=== PATIENT | female | born 1975 | race American Indian/Alaskan Native ===

== ENCOUNTER 2021-07-30 14:21 | Inpatient (IN) ==
[2021-07-30] MEDS ORDERED: IOPAMIDOL 100 ML BOTTLE IV ONE (14:22)
[2021-07-30] MEDS ORDERED: ACETAMINOPHEN 1,000 MG/100 ML BAG IV ONE ×3 (14:34→20:20)
[2021-07-30] MEDS ORDERED: 0.9 % SODIUM CHLORIDE 1,000 ML IV ONE ×2 (14:34→18:02)
[2021-07-30 14:59] LABS: POC Blood Urea Nitrogen 11 mg/dL (6-20); POC CO2 22 mmol/L (22-30); POC Chloride 98 mEq/L (96-108); POC Creatinine 0.7 mg/dL (0.6-1.2); POC Glucose, Random 218 mg/dL (70-105); POC Hematocrit 36 % (36-48); POC Potassium 3.7 mEql/L (3.3-5.1); POC Sodium 137 mEq/L (133-145)
--- NOTE | 2021-07-30 14:59 | Emergency Department Note ---
HPI General Chief complaint: Cold/Flu Symptoms Stated complaint: cold/flu Time Seen by Provider: 07/30/21 14:32 Source: patient Mode of arrival: wheelchair Limitations: no limitations History of Present Illness HPI Narrative: Narrative: Patient presents emergency department for evaluation of generalized body aches, fever, nausea vomiting started this morning. Symptoms are associated with chills. Patient's had some diffuse abdominal pain. No other complaints. Related Data Home Medications Medication Instructions Recorded Confirmed acetaminophen 325 mg tablet 650 mg PO .Q4-6H PRN tab 06/21/17 07/28/21 alcohol swabs (Alcohol Wipes) pad TOPICAL 06/21/17 07/28/21 atenolol 50 mg tablet 100 mg PO QDAY tab 06/21/17 07/28/21 blood sugar diagnostic (FreeStyle #20 each 06/21/17 07/28/21 Lite Strips) clobetasol 0.05 % scalp solution 1 applic TOPICAL .1-3xWK PRN ml 06/21/17 07/28/21 cyanocobalamin (vitamin B-12) 1,000 mcg PO QDAY 06/21/17 07/28/21 1,000 mcg capsule lancets [FreeStyle Lancets] MISCELLANE 06/21/17 07/28/21 lisinopril 10 mg tablet 10 mg PO QDAY 06/21/17 07/28/21 metformin 750 mg tablet,extended 750 mg PO QDAY 06/21/17 07/28/21 release 24 hr multivitamin (Daily Multiple) 1 tab PO QDAY 06/21/17 07/28/21 omeprazole 20 mg capsule,delayed 20 mg PO BID 06/21/17 07/28/21 release Freestyle Lite Blood Glucose .ROUTE 06/23/17 07/28/21 Machine Previous Rx's Medication Instructions Recorded clobetasol 0.05 % topical cream 1 applic TOPICAL BID #45 g 02/28/19 ondansetron HCl 4 mg tablet 4 mg PO Q6H PRN #10 tab 11/30/20 (Zofran) secukinumab 150 mg/mL subcutaneous See Rx Instructions .ROUTE 07/30/21 pen injector (Cosentyx Pen 300 .COMPLEX #12 ml mg/2 Pens () Allergies Allergy/AdvReac Type Severity Reaction Status Date / Time No Known Drug Allergies Allergy Verified 07/30/21 14:24 Review of Systems ROS ROS Narrative: Narrative: As above, all other system reviewed and negative PFSH Narrative Patient History Narrative: Narrative: Reviewed Medical/Surgical/Family History All Active Problems (Updated 07/30/21 @ 17:56 by Faisal Orellana MD) Type 2 diabetes mellitus (Chronic) Simple chronic anemia (Chronic) Chronic depression (Chronic) Psoriasis (Chronic) Knee pain, chronic (Chronic) Asthma, chronic (Chronic) Morbid obesity (Acute) Chronic allergic rhinitis (Chronic) Gastroesophageal reflux disease (Chronic) Hypertension (Chronic) Osteoarthritis (Acute) Psoriatic arthritis (Chronic) Plaque psoriasis (Chronic) Allergic rhinitis (Chronic) Obesity (Chronic) Asthma (Chronic) Anemia (Chronic) Knee pain (Chronic) Seborrhea (Chronic) Depression (Chronic) Hypersomnia (Chronic) Sleep apnea (Chronic) Upper respiratory infection (Chronic) Knee pain, bilateral (Acute) Sore throat (Chronic) Viral upper respiratory tract infection (Chronic) Psoriasis with arthropathy (Chronic) Encounter for long-term (current) use of high-risk medication (Chronic) Nausea (Acute) Necrotizing fasciitis (Acute) Sepsis (Acute) Medical History (Updated 07/30/21 @ 17:56 by Faisal Orellana MD) Allergic rhinitis Anemia Asthma Asthma, chronic Chronic allergic rhinitis Chronic depression Depression Encounter for long-term (current) use of high-risk medication Gastroesophageal reflux disease Hypersomnia Hypertension Knee pain Knee pain, bilateral Knee pain, chronic Morbid obesity Obesity Osteoarthritis Plaque psoriasis Psoriasis Psoriasis with arthropathy Psoriatic arthritis Possible Seborrhea Scalp Simple chronic anemia Sleep apnea Sore throat Type 2 diabetes mellitus Upper respiratory infection Viral upper respiratory tract infection Surgical History No pertinent past surgical history Family History Grandfather FHx: diabetes mellitus Maternal Unknown FHx: heart disease FHx: hypertension Family/Other , of colon cancer diagnosed at age 60 Colon cancer Maternal Uncle Social History Smoking Status: Never smoker Alcohol Intake Frequency: does not drink Substance Use: does not use Exam Narrative Narrative: Narrative: Blood pressure 115/67, pulse 121, respirations 20, temperature 102.7, satting 94% room air. General Limitations: no limitations General appearance: Present alert Head Head: Present atraumatic, normocephalic and normal inspection Eye Eye: Present normal appearance, PERRL and EOMI ENT ENT: Present normal exam Neck Neck: Present normal inspection and full ROM Respiratory Respiratory: Absent respiratory distress Adbominal Abdominal: Present soft, tenderness (Diffuse) and other (There is some erythema to the skin overlying the pannus in the right lower quadrant with associated tenderness without crepitus.); Absent distention, guarding or rebound Extremities Extremities: Present normal inspection and full ROM Neurological Neurological: Present alert, oriented X3 and CN II-XII intact; Absent motor sensory deficit Psychiatric Psychiatric: Present normal affect and normal mood Skin Skin: Present warm (WNL) and dry Course Vital Signs Vital signs: Vital Signs Temperature 102.7 F H 07/30/21 14:22 Pulse Rate 121 H 07/30/21 14:22 Respiratory Rate 20 07/30/21 14:22 Blood Pressure 115/67 07/30/21 14:22 Pulse Oximetry (%) 94 07/30/21 14:22 Temperature 101.1 F H 07/30/21 15:47 Pulse Rate 100 H 07/30/21 17:16 Respiratory Rate 20 07/30/21 15:08 Blood Pressure 99/68 07/30/21 17:16 Pulse Oximetry (%) 95 07/30/21 17:16 MDM MDM Narrative Medical decision making narrative: Narrative: Patient is hydrated with IV fluids. Initially placed on Rocephin. I spoke with on-call hospitalist who recommended the addition of vancomycin and Zosyn which were ordered and if positive for necrotizing fasciitis on CT scan recommended clindamycin as well. CT scans consistent with necrotizing fasciitis per radiology. I spoke with surgeon, Dr. Funez who came promptly to the emergency department and evaluated the patient. Patient was also hydrated with IV fluids. Surgery plans to take the patient to the operating room. Greater than 30 minutes critical care time was spent via direct patient contact, reviewing results of work-up, speaking with [employer] distribution consultant etc. Lab Data Result diagrams: 07/30/21 14:49 07/30/21 14:48 Labs: Lab Results 07/30/21 07/30/21 Range/Units 14:48 14:49 WBC 20.6 H (4.5-11.0) K/mcL RBC 4.27 (3.59-5.38) M/mcL Hgb 11.5 (11.2-15.7) g/dL Hct 35.8 (34.1-44.9) % POC Hct 36 (36-48) % MCV 83.8 (80.0-100.0) fL MCH 26.9 (26.0-34.0) pg MCHC 32.1 (31.0-36.0) g/dL RDW 13.2 (11.5-14.5) % Plt Count 422 (140-440) K/mcL MPV 9.7 (7.4-10.4) fL Neut % (Auto) 85.7 H (38.0-78.0) % Lymph % (Auto) 6.8 L (15.5-49.0) % [place] % (Auto) 7.2 (1.0-12.0) % Eos % (Auto) 0 (0.0-7.0) % Baso % (Auto) 0.3 (0.0-2.0) % Lymph # (Auto) 1.40 L (1.50-4.80) K/mcL [place] # (Auto) 1.48 H (0.10-0.90) K/mcL Eos # (Auto) 0.01 (0.00-0.70) K/mcL Baso # (Auto) 0.07 (0.00-0.30) K/mcL Absolute Neutrophils 17.68 H (1.80-8.00) K/mcL POC Sodium 137 (133-145) mEq/L Sodium 134 (133-145) mmol/L POC Potassium 3.7 (3.3-5.1) mEql/L Potassium 3.7 (3.3-5.1) mmol/L POC Chloride 98 (96-108) mEq/L Chloride 99 (96-108) mmol/L Carbon Dioxide 22 (22-30) mmol/L POC Total CO2 22 (22-30) mmol/L Anion Gap 13.0 (8.0-16.0) POC BUN 11 (6-20) mg/dL BUN 9 (6-20) mg/dL Creatinine 0.7 (0.6-1.1) mg/dL POC Creatinine 0.7 (0.6-1.2) mg/dL GFR Calculation 105 Glucose 216 H (70-105) mg/dL POC Glucose 218 H (70-105) mg/dL Calcium 8.6 (8.6-10.4) mg/dL POC WB Ioniz Calcium 1.10 L (1.16-1.32) mmEq/L Total Bilirubin 0.9 (0.1-1.0) mg/dL AST 19 (<32) U/L ALT 18 (<40) U/L Alkaline Phosphatase 93 (39-117) U/L Total Protein 7.8 (5.9-8.4) gm/dL Albumin 3.6 (3.2-5.2) gm/dL Globulin 4.2 H (2.2-3.7) gm/dL Albumin/Globulin Ratio 0.9 L (1.0-2.3) ED POC Tests ED POC Tests: HUI - Influenza A Positive HUI - Influenza B Negative HUI - SARS Antigen Negative HCG POC Results Negative Discharge Plan Patient/Caregiver Discharge Instructions Pt seen by CHIEF OPERATOR/PA only: No Clinical Impression: Necrotizing fasciitis, Sepsis Patient Disposition: Xfer As Inpt ([facility]) Follow up with: Tano Groves ARNP [Primary Care Provider] - Prescriptions: No Action clobetasol 0.05 % cream 1 applic TOPICAL BID Qty: 45 2RF Cosentyx Pen (2 Pens) 150 mg/mL pen injector See Rx Instructions .ROUTE .COMPLEX Qty: 12 0RF Rx Instructions: take 300mg at 0, 1, 2, 3, 4, weeks; then take 300mg every 4 weeks; lancets MISCELLANE 0RF (DME) blood sugar diagnostic [FreeStyle Lite Strips] strip See Dose Instructions .ROUTE .MEDSUPPLY Qty: 20 0RF Rx Instructions: As directed cyanocobalamin (vitamin B-12) 1,000 mcg capsule 1,000 mcg PO QDAY 0RF omeprazole 20 mg capsule,delayed release(DR/EC) 20 mg PO BID 0RF multivitamin [Daily Multiple] tablet 1 tab PO QDAY 0RF metformin 750 mg tablet extended release 24 hr 750 mg PO QDAY 0RF lisinopril 10 mg tablet 10 mg PO QDAY 0RF clobetasol 0.05 % solution 1 applic TOPICAL .1-3xWK PRN (Reason: Itching) 0RF atenolol 50 mg tablet 100 mg PO QDAY 0RF acetaminophen 325 mg tablet 650 mg PO .Q4-6H PRN (Reason: Pain) 0RF alcohol swabs [Alcohol Wipes] pads, medicated TOPICAL 0RF Freestyle Lite Blood Glucose Machine .Route 0RF Label Comments: .Route Rx Instructions: .Route ondansetron HCl [Zofran] 4 mg tablet 4 mg PO Q6H PRN (Reason: nausea and vomiting) Qty: 10 0RF
[2021-07-30 15:43] LABS: Basophils # (Auto) 0.07 K/mcL (0.00-0.30); Basophils % (Auto) 0.3 % (0.0-2.0); Eosinophils # (Auto) 0.01 K/mcL (0.00-0.70); Eosinophils % (Auto) 0 % (0.0-7.0); Hematocrit 35.8 % (34.1-44.9); Hemoglobin 11.5 g/dL (11.2-15.7); Lymphocytes % (Auto) 6.8 % (15.5-49.0); Mean Cell Volume 83.8 fL (80.0-100.0); Mean Corpuscular HGB Conc 32.1 g/dL (31.0-36.0); Mean Platelet Volume 9.7 fL (7.4-10.4); Monocytes # (Auto) 1.48 K/mcL (0.10-0.90); Monocytes % (Auto) 7.2 % (1.0-12.0); Neutrophils % (Auto) 85.7 % (38.0-78.0); Platelet Count 422 K/mcL (140-440); RBC 4.27 M/mcL (3.59-5.38); Red Cell Distribution Width 13.2 % (11.5-14.5); WBC 20.6 K/mcL (4.5-11.0)
[2021-07-30 15:45] LABS: ALT/SGPT 18 U/L (<40); AST/SGOT 19 U/L (<32); Albumin 3.6 gm/dL (3.2-5.2); Albumin/Globulin Ratio 0.9 (1.0-2.3); Alkaline Phosphatase 93 U/L (39-117); Bilirubin,Total 0.9 mg/dL (0.1-1.0); Blood Urea Nitrogen 9 mg/dL (6-20); Calcium 8.6 mg/dL (8.6-10.4); Carbon Dioxide 22 mmol/L (22-30); Chloride 99 mmol/L (96-108); Globulin 4.2 gm/dL (2.2-3.7); Glomerular Filtration Rate 105; Glucose 216 mg/dL (70-105)
--- NOTE | 2021-07-30 15:47 | XRay Report ---
INDICATION: fever TECHNIQUE: AP portable chest x-ray COMPARISON: Previous chest x-ray dated 08/26/2017 FINDINGS: Lungs:No pulmonary parenchymal consolidation. There may be subtle bibasilar interstitial infiltrate. Correlation with patient's covid test recommended. Heart, vascular:No significant cardiomegaly. Pulmonary vascularity is normal. No pulmonary edema or pulmonary congestion Mediastinum, jade:No mediastinal widening. No hilar mass Pleura:No pleural fluid. No pleural-based mass or calcification Skeletal:Negative. IMPRESSION: 1. Possible mild subtle interstitial infiltrates at both lung bases. Covid pneumonia is possible 2. No other abnormality Interpreted and Authenticated by: Grayson Ngo 07/30/21
[2021-07-30] MEDS ORDERED: cefTRIAXone 2 GM in DEXTROSE 5% IN WATER 50 ML IV ONE (15:52)
--- NOTE | 2021-07-30 16:07 | Cat Scan Report ---
INDICATION: abd pain, fever COMPARISON: Chest x-ray dated 07/30/2021 TECHNIQUE: Axial images were obtained through the abdomen and pelvis. Sagittally and coronally reformatted images. 80 mL Isovue 370 injected intravenously. Oral contrast material was not administered FINDINGS: Lung bases:Negative. No pulmonary parenchymal nodule. No pleural fluid or pericardial fluid Liver:Mildly low density liver consistent with hepatic steatosis. No focal mass. Liver contour is smooth. There is no ascites Gallbladder, bilary:No calcified gallstones. No gallbladder wall thickening. No dilated intra or extrahepatic bile ducts. Spleen:No splenomegaly. Normal enhancement of splenic and portal veins. Pancreas:No pancreatic mass. No peripancreatic abnormality Adrenal glands:Negative Kidneys,ureters,bladder:No solid renal mass. No hydronephrosis. No obstructing or nonobstructing calculi. No hydroureter. No ureteral calculus. No bladder stone. No detectable bladder mass. Gastrointestinal:No detectable colonic mass. There is no diverticulitis. Negative small bowel. No mechanical small bowel obstruction. No bowel wall thickening. No focal abnormality. Negative stomach and duodenum. No focal abnormality. Appendix: The appendix is negative Vascular:Negative abdominal aorta. Superior mesenteric artery and celiac trunk are normal. Normal opacification of the inferior mesenteric artery Lymphatic:No retroperitoneal or mesenteric adenopathy Mesentery, peritoneum: No free intraperitoneal fluid. No mesenteric or retroperitoneal mass. No intra-abdominal abscess. Reproductive:Uterus is anteflexed. There is an intrauterine contraceptive device in the lower uterine segment. No adnexal mass Musculoskeletal:Degenerative disc disease at L5-S1. No lumbar compression fracture. Sacrum and pelvis are negative. Hips are negative. No abdominal wall or inguinal hernia There is gas in the superficial soft tissues of the right lower quadrant. This appears to be associated with this patient's pannus. The entire pannus as well as subcutaneous soft tissues is not included on this examination. Skin breakdown and subcutaneous inflammation and cellulitis are suspected. Direct visualization is necessary as only a portion of this abnormality is included on this examination. IMPRESSION: 1. Negative appendix 2. Probable hepatic steatosis 3. Intrauterine contraceptive device in the lower uterine segment 4. Gas in the soft tissues of the right lower quadrant may be trapped within the pannus. There may be associated skin breakdown with cellulitis. The entire pannus and lateral aspects of the abdominal wall are not included on this examination. Direct visualization is necessary. The exam was performed using radiation dose optimization techniques including, but not limited to, automated exposure control, adjustment of the mA and/or kV according to patient size and use of iterative reconstruction technique. Interpreted and Authenticated by: Grayson Ngo 07/30/21
[2021-07-30] MEDS ORDERED: PIPERACILLIN SODIUM/TAZOBACTAM 3.375 GM in DEXTROSE 5% IN WATER 50 ML IV ONE (16:38)
[2021-07-30] MEDS ORDERED: VANCOMYCIN PER PHARMACY IV ONE (16:38)
[2021-07-30] MEDS ORDERED: CLINDAMYCIN 900 MG in DEXTROSE 5% IN WATER 50 ML IV ONE (17:01)
--- NOTE | 2021-07-30 17:05 | Cat Scan Report ---
INDICATION: cellulitis TECHNIQUE: Limited CT scan of the right lower quadrant was performed. The patient was centered in the gantry so that the entire right side including the subcutaneous soft tissues was scanned. The pannus was taped and hold. COMPARISON: Previous CT scan dated 07/30/2021 FINDINGS: There is skin thickening in the right lower quadrant with intradermal or subdermal gas. There is gas within the subcutaneous fat consistent with necrotizing fasciitis. There is no significant contained abscess. There is infiltration of the surrounding fat consistent with cellulitis. No intra-abdominal abnormality IMPRESSION: 1. Skin thickening in the right lower quadrant with gas in the subcutaneous fat. Appearance is consistent with necrotizing fasciitis 2. No intraperitoneal abnormality. No defined abscess cavity Interpreted and Authenticated by: Grayson Ngo 07/30/21
[2021-07-30] MEDS ORDERED: VANCOMYCIN 2,000 MG in 0.9 % SODIUM CHLORIDE 500 ML IV ONE (17:15)
--- NOTE | 2021-07-30 18:24 | General Surgery Consult Note ---
HPI Data of Consult Patient: new to practice Consult date: 07/30/21 Primary Care Provider: GIGI Hernandez Consult Narrative Chief complaint: Pain, fever Reason for consult: Concern for Necrotizing Soft Tissue Infection History of present illness: Olivia is seen in consultation tonight in the ER after presenting with fever, weakness and pain. On exam she was found to have an area of fluctuant erythema in the soft tissue of her RLQ pannus. A CT was performed which demonstrated findings consistent with soft tissue/SQ air raising concerns regarding a possible Necrotizing Soft Tissue Infection. She suffers with Morbid Obesity and Diabetes but has not had past soft tissue infections. Of note, she was found to be positive for Influenza A as well. Her pressures have been low in the ER but have been responsive to fluids. She is not currently on pressors but is on a chronic B Dawit perhaps explaining her lack of Tachycardia. She does not inject her insulin in the area of concern and is quite clear that this could not be a possible source of air or infection in this area. She denies any known cardiac issues, is not on a CPAP or BIPAP and denies home O2 use. She is not on any oral anticoagulants. cc:: CC: Review of Systems All systems: reviewed and no additional remarkable complaints except as stated PFSH PFSH All Active Problems (Updated 07/30/21 @ 18:19 by Tico Funez MD) Necrotizing soft tissue infection (Acute) Type 2 diabetes mellitus (Chronic) Simple chronic anemia (Chronic) Chronic depression (Chronic) Psoriasis (Chronic) Knee pain, chronic (Chronic) Asthma, chronic (Chronic) Morbid obesity (Acute) Chronic allergic rhinitis (Chronic) Gastroesophageal reflux disease (Chronic) Hypertension (Chronic) Osteoarthritis (Acute) Psoriatic arthritis (Chronic) Plaque psoriasis (Chronic) Allergic rhinitis (Chronic) Obesity (Chronic) Asthma (Chronic) Anemia (Chronic) Knee pain (Chronic) Seborrhea (Chronic) Depression (Chronic) Hypersomnia (Chronic) Sleep apnea (Chronic) Upper respiratory infection (Chronic) Knee pain, bilateral (Acute) Sore throat (Chronic) Viral upper respiratory tract infection (Chronic) Psoriasis with arthropathy (Chronic) Encounter for long-term (current) use of high-risk medication (Chronic) Nausea (Acute) Necrotizing fasciitis (Acute) Sepsis (Acute) Medical History (Updated 07/30/21 @ 18:19 by Tico Funez MD) Allergic rhinitis Anemia Asthma Asthma, chronic Chronic allergic rhinitis Chronic depression Depression Encounter for long-term (current) use of high-risk medication Gastroesophageal reflux disease Hypersomnia Hypertension Knee pain Knee pain, bilateral Knee pain, chronic Morbid obesity Obesity Osteoarthritis Plaque psoriasis Psoriasis Psoriasis with arthropathy Psoriatic arthritis Possible Seborrhea Scalp Simple chronic anemia Sleep apnea Sore throat Type 2 diabetes mellitus Upper respiratory infection Viral upper respiratory tract infection Surgical History No pertinent past surgical history Family History Grandfather FHx: diabetes mellitus Maternal Unknown FHx: heart disease FHx: hypertension Family/Other , of colon cancer diagnosed at age 60 Colon cancer Maternal Uncle Social History marital status: occupational 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 alcohol intake frequency: does not drink substance use type: does not use MEDS/ALLERGIES Home Medications and Allergies Home Medications Medication Instructions Recorded Confirmed Type acetaminophen 325 mg tablet 650 mg PO .Q4-6H PRN tab 06/21/17 07/28/21 History alcohol swabs (Alcohol Wipes) pad TOPICAL 06/21/17 07/28/21 History atenolol 50 mg tablet 100 mg PO QDAY tab 06/21/17 07/28/21 History blood sugar diagnostic (FreeStyle #20 each 06/21/17 07/28/21 History Lite Strips) clobetasol 0.05 % scalp solution 1 applic TOPICAL .1-3xWK PRN ml 06/21/17 History cyanocobalamin (vitamin B-12) 1,000 mcg PO QDAY 06/21/17 07/28/21 History 1,000 mcg capsule lancets [FreeStyle Lancets] MISCELLANE 06/21/17 07/28/21 History lisinopril 10 mg tablet 10 mg PO QDAY 06/21/17 07/28/21 History metformin 750 mg tablet,extended 750 mg PO QDAY 06/21/17 07/28/21 History release 24 hr multivitamin (Daily Multiple) 1 tab PO QDAY 06/21/17 07/28/21 History omeprazole 20 mg capsule,delayed 20 mg PO BID 06/21/17 07/28/21 History release Freestyle Lite Blood Glucose .ROUTE 06/23/17 07/28/21 History Machine clobetasol 0.05 % topical cream 1 applic TOPICAL BID #45 g 02/28/19 07/28/21 Rx ondansetron HCl 4 mg tablet 4 mg PO Q6H PRN #10 tab 11/30/20 07/28/21 Rx (Zofran) secukinumab 150 mg/mL subcutaneous See Rx Instructions .ROUTE 07/30/21 Rx pen injector (Cosentyx Pen 300 .COMPLEX #12 ml mg/2 Pens () Allergies Allergy/AdvReac Type Severity Reaction Status Date / Time No Known Drug Allergies Allergy Verified 07/30/21 14:24 Physical Examination Vital Signs Vital signs: Temp Pulse Resp BP Pulse Ox 101.1 F H 89 20 102/61 98 07/30/21 15:47 07/30/21 18:01 07/30/21 15:08 07/30/21 18:01 07/30/21 18:01 General physical appearance General physical exam: well developed, well nourished and no distress Eyes Eye exam: other (normal appearance ) Head Head exam IM: Present atraumatic and normocephalic Neck Neck exam: no masses, trachea midline and no lymphadenopathy Cardiovascular Cardiovascular exam IM: Present normal rate and rhythm and RRR Respiratory Respiratory exam: normal expansion and normal respiratory effort Abdomen Abdomen: Present soft (directed exam demonstrates a roughly 5 by 10 cm area of raised erythema and ? bullae formation with some fluctuance and crepitus, the area is tender ) Integumentary Integumentary: Present other (see above ) Results Labs Result diagrams: 07/30/21 14:49 07/30/21 14:48 Labs: Abnormal lab results 07/30/21 07/30/21 Range/Units 14:48 14:49 WBC 20.6 H (4.5-11.0) K/mcL Neut % (Auto) 85.7 H (38.0-78.0) % Lymph % (Auto) 6.8 L (15.5-49.0) % Lymph # (Auto) 1.40 L (1.50-4.80) K/mcL [place] # (Auto) 1.48 H (0.10-0.90) K/mcL Absolute Neutrophils 17.68 H (1.80-8.00) K/mcL Glucose 216 H (70-105) mg/dL POC Glucose 218 H (70-105) mg/dL POC WB Ioniz Calcium 1.10 L (1.16-1.32) mmEq/L Globulin 4.2 H (2.2-3.7) gm/dL Albumin/Globulin Ratio 0.9 L (1.0-2.3) Diabetes panel 07/30/21 Range/Units 14:48 Sodium 134 (133-145) mmol/L Potassium 3.7 (3.3-5.1) mmol/L Chloride 99 (96-108) mmol/L Carbon Dioxide 22 (22-30) mmol/L BUN 9 (6-20) mg/dL Creatinine 0.7 (0.6-1.1) mg/dL Glucose 216 H (70-105) mg/dL Calcium 8.6 (8.6-10.4) mg/dL AST 19 (<32) U/L ALT 18 (<40) U/L Alkaline Phosphatase 93 (39-117) U/L Total Protein 7.8 (5.9-8.4) gm/dL Albumin 3.6 (3.2-5.2) gm/dL Calcium panel 07/30/21 Range/Units 14:48 Calcium 8.6 (8.6-10.4) mg/dL Albumin 3.6 (3.2-5.2) gm/dL Pituitary panel 07/30/21 Range/Units 14:48 Sodium 134 (133-145) mmol/L Potassium 3.7 (3.3-5.1) mmol/L Chloride 99 (96-108) mmol/L Carbon Dioxide 22 (22-30) mmol/L BUN 9 (6-20) mg/dL Creatinine 0.7 (0.6-1.1) mg/dL Glucose 216 H (70-105) mg/dL Calcium 8.6 (8.6-10.4) mg/dL Adrenal panel 07/30/21 Range/Units 14:48 Sodium 134 (133-145) mmol/L Potassium 3.7 (3.3-5.1) mmol/L Chloride 99 (96-108) mmol/L Carbon Dioxide 22 (22-30) mmol/L BUN 9 (6-20) mg/dL Creatinine 0.7 (0.6-1.1) mg/dL Glucose 216 H (70-105) mg/dL Calcium 8.6 (8.6-10.4) mg/dL Total Bilirubin 0.9 (0.1-1.0) mg/dL AST 19 (<32) U/L ALT 18 (<40) U/L Alkaline Phosphatase 93 (39-117) U/L Total Protein 7.8 (5.9-8.4) gm/dL Albumin 3.6 (3.2-5.2) gm/dL All other labs normal. A/P Assessment and plan (1) Necrotizing soft tissue infection: Status: Acute Narrative A/P Narrative: Presumed Necrotizing Soft Tissue Infection of the RLQ Abdominal Wall Pannus Emergent Debridement is Recommended Issues are discussed at length with the patient including a full discussion of Risks, Benefits, Potential Complications and Alternative Treatment Options as well including but no limited to an open wound, possible need for additional debridement, possible discovery that she does not have a substantial soft tissue infection and does not improve as a result of this intervention, pain, and possible cardiopulmonary issues or hemodynamic demise during or even after surgery She understands and wishes to proceed. Time Spent With Patient Time: Total time spent is greater than 50% in coordination of care (as documented) at patient's floor/unit and/or counseling patient:
[2021-07-30] MEDS ORDERED: SUGAMMADEX SODIUM 200 MG/2 ML VIAL IV ONE (19:14)
[2021-07-30] MEDS ORDERED: DEXAMETHASONE 10 MG/ML VIAL ONE (19:14)
[2021-07-30] MEDS ORDERED: fentaNYL 100 MCG/2 ML VIAL IV ONE (19:14)
[2021-07-30] MEDS ORDERED: MIDAZOLAM 2 MG/2 ML VIAL ONE (19:14)
[2021-07-30] MEDS ORDERED: GLYCOPYRROLATE 0.2 MG/ML VIAL IV ONE (19:14)
[2021-07-30] MEDS ORDERED: MAGNESIUM SULFATE 2 GM/50 ML BAG IV ONE (19:14)
[2021-07-30] MEDS ORDERED: ONDANSETRON 4 MG/2 ML VIAL ONE (19:14)
[2021-07-30] MEDS ORDERED: LIDOCAINE HCL/PF 100 MG/5 ML SYRINGE IV ONE (19:14)
[2021-07-30] MEDS ORDERED: ROCURONIUM 10 MG/ML ML IV ONE (19:14)
[2021-07-30] MEDS ORDERED: KETAMINE 50 MG/ML Syringe (ANEST) IV ONE (19:14)
[2021-07-30] MEDS ORDERED: PROPOFOL 200 MG/20 ML VIAL IV ONE (19:14)
[2021-07-30] MEDS ORDERED: BENZOCAINE/MENTHOL 1 LOZENGE PO PRN (19:44)
[2021-07-30] MEDS ORDERED: KETOROLAC 30 MG/ML VIAL IV PRN (19:44)
[2021-07-30] MEDS ORDERED: ONDANSETRON 4 MG/2 ML VIAL IV PRN (19:44)
[2021-07-30] MEDS ORDERED: MEPERIDINE 25 MG/ML VIAL IV PRN (19:44)
[2021-07-30] MEDS ORDERED: IPRATROPIUM/ALBUTEROL 3 ML AMPUL.NEB NEB PRN (19:44)
[2021-07-30] MEDS ORDERED: fentaNYL 100 MCG/2 ML VIAL IV PRN (19:44)
[2021-07-30] MEDS ORDERED: LACTATED RINGERS 1,000 ML IV SCH (19:45)
--- NOTE | 2021-07-31 00:21 | Brief Operative Note ---
Brief Operative Note Date of procedure: 07/30/21 Pre-op diagnosis: Necrotizing Soft Tissue Infection Post-op diagnosis: same Procedure: Exploration and Debridement Grafts/Implants: No Anesthesia: GETA Findings: foul smelling necrotizing soft tissue infection Complications: none Surgeon: Tico Funez Specimens Removed/Pathology: other ([place] and culture) Condition: stable Disposition: PACU
--- NOTE | 2021-07-31 00:41 | Emergency Department Note ---
HPI General Chief complaint: Cold/Flu Symptoms Stated complaint: cold/flu Time Seen by Provider: 07/30/21 14:32 Source: patient Mode of arrival: wheelchair Limitations: no limitations History of Present Illness HPI Narrative: Narrative: Related Data Home Medications Medication Instructions Recorded Confirmed acetaminophen 325 mg tablet 650 mg PO .Q4-6H PRN tab 06/21/17 07/28/21 alcohol swabs (Alcohol Wipes) pad TOPICAL 06/21/17 07/28/21 atenolol 50 mg tablet 100 mg PO QDAY tab 06/21/17 07/28/21 blood sugar diagnostic (FreeStyle #20 each 06/21/17 07/28/21 Lite Strips) clobetasol 0.05 % scalp solution 1 applic TOPICAL .1-3xWK PRN ml 06/21/17 07/28/21 cyanocobalamin (vitamin B-12) 1,000 mcg PO QDAY 06/21/17 07/28/21 1,000 mcg capsule lancets [FreeStyle Lancets] MISCELLANE 06/21/17 07/28/21 lisinopril 10 mg tablet 10 mg PO QDAY 06/21/17 07/28/21 metformin 750 mg tablet,extended 750 mg PO QDAY 06/21/17 07/28/21 release 24 hr multivitamin (Daily Multiple) 1 tab PO QDAY 06/21/17 07/28/21 omeprazole 20 mg capsule,delayed 20 mg PO BID 06/21/17 07/28/21 release Freestyle Lite Blood Glucose .ROUTE 06/23/17 07/28/21 Machine Previous Rx's Medication Instructions Recorded clobetasol 0.05 % topical cream 1 applic TOPICAL BID #45 g 02/28/19 ondansetron HCl 4 mg tablet 4 mg PO Q6H PRN #10 tab 11/30/20 (Zofran) secukinumab 150 mg/mL subcutaneous See Rx Instructions .ROUTE 07/30/21 pen injector (Cosentyx Pen 300 .COMPLEX #12 ml mg/2 Pens () Allergies Allergy/AdvReac Type Severity Reaction Status Date / Time No Known Drug Allergies Allergy Verified 07/30/21 14:24 Review of Systems ROS ROS Narrative: Narrative: PFSH Narrative Patient History Narrative: Narrative: Medical/Surgical/Family History All Active Problems (Updated 07/30/21 @ 18:19 by Tico Funez MD) Necrotizing soft tissue infection (Acute) Type 2 diabetes mellitus (Chronic) Simple chronic anemia (Chronic) Chronic depression (Chronic) Psoriasis (Chronic) Knee pain, chronic (Chronic) Asthma, chronic (Chronic) Morbid obesity (Acute) Chronic allergic rhinitis (Chronic) Gastroesophageal reflux disease (Chronic) Hypertension (Chronic) Osteoarthritis (Acute) Psoriatic arthritis (Chronic) Plaque psoriasis (Chronic) Allergic rhinitis (Chronic) Obesity (Chronic) Asthma (Chronic) Anemia (Chronic) Knee pain (Chronic) Seborrhea (Chronic) Depression (Chronic) Hypersomnia (Chronic) Sleep apnea (Chronic) Upper respiratory infection (Chronic) Knee pain, bilateral (Acute) Sore throat (Chronic) Viral upper respiratory tract infection (Chronic) Psoriasis with arthropathy (Chronic) Encounter for long-term (current) use of high-risk medication (Chronic) Nausea (Acute) Necrotizing fasciitis (Acute) Sepsis (Acute) Medical History (Updated 07/30/21 @ 18:19 by Tico Funez MD) Allergic rhinitis Anemia Asthma Asthma, chronic Chronic allergic rhinitis Chronic depression Depression Encounter for long-term (current) use of high-risk medication Gastroesophageal reflux disease Hypersomnia Hypertension Knee pain Knee pain, bilateral Knee pain, chronic Morbid obesity Obesity Osteoarthritis Plaque psoriasis Psoriasis Psoriasis with arthropathy Psoriatic arthritis Possible Seborrhea Scalp Simple chronic anemia Sleep apnea Sore throat Type 2 diabetes mellitus Upper respiratory infection Viral upper respiratory tract infection Surgical History No pertinent past surgical history Family History Grandfather FHx: diabetes mellitus Maternal Unknown FHx: heart disease FHx: hypertension Family/Other , of colon cancer diagnosed at age 60 Colon cancer Maternal Uncle Social History Smoking Status: Never smoker Alcohol Intake Frequency: does not drink Substance Use: does not use Exam Narrative Narrative: Narrative: General Limitations: no limitations Course Vital Signs Vital signs: Vital Signs Temperature 102.7 F H 07/30/21 14:22 Pulse Rate 121 H 07/30/21 14:22 Respiratory Rate 20 07/30/21 14:22 Blood Pressure 115/67 07/30/21 14:22 Pulse Oximetry (%) 94 07/30/21 14:22 Temperature 101.1 F H 07/30/21 20:24 Pulse Rate 71 07/31/21 06:16 Respiratory Rate 29 H 07/30/21 20:26 Blood Pressure 110/67 07/31/21 06:16 Pulse Oximetry (%) 95 07/31/21 06:16 MDM MDM Narrative Medical decision making narrative: Narrative: Patient is a 45-year-old female who presented with chief complaint of necrotizing fasciitis. Patient was signed out to me by Dr. Chávez, and I agree with work-up and plan thus far. Is my understand the patient presented with generalized not feeling well complaints starting today, had a CT scan concerning for possible neck fashion, and repeat CT scan did confirm this. Surgery was consulted emergently, and Dr. Funez was able to see the patient at bedside. At signout the patient was to be taken to the OR, however we do not have any beds for admission here at this time so we are going to attempt transfer to facilitate continued management. In talking with Dr. Funez after postop, it sounded like there was some significant necrotizing fasciitis noted, but it did not penetrate the peritoneum or fascia. Patient has a large wound where tissue was excised, but otherwise tolerated the procedure well. She does not appear to be septic or toxic at this time, and blood pressure has remained stable throughout. I was able to discuss the case with the [facility] surgeon, Dr. Reese, and he agreed with the current plan of taking the patient to the OR. He stated the pain on how the patient responded and how she was doing would determine whether or not she required ICU bed placement versus floor bed placement. Unfortunately [facility] only has ICU bed available, so they will be unable to accept the patient at this time. Thus far we have been unable to find a bed for the patient, and in discussion with Dr. Funez he did feel that if a bed was able to open up here at our hospital he would feel comfortable with the patient staying here considering how she currently is appearing. If we are unable to locate another bed before 1 opens up here at our hospital we will work on admission to our hospital for further work-up and management. I did personally seen evaluate the patient here after her surgery and she is resting in bed comfortably, talking normally and appropriately. She does not appear to be in acute discomfort or distress. She states overall she is feeling better outside of some soreness from her throat after the intubation for the surgery. Lab Data Result diagrams: 07/30/21 14:49 07/30/21 14:48 Labs: Lab Results 07/30/21 07/30/21 Range/Units 14:48 14:49 WBC 20.6 H (4.5-11.0) K/mcL RBC 4.27 (3.59-5.38) M/mcL Hgb 11.5 (11.2-15.7) g/dL Hct 35.8 (34.1-44.9) % POC Hct 36 (36-48) % MCV 83.8 (80.0-100.0) fL MCH 26.9 (26.0-34.0) pg MCHC 32.1 (31.0-36.0) g/dL RDW 13.2 (11.5-14.5) % Plt Count 422 (140-440) K/mcL MPV 9.7 (7.4-10.4) fL Neut % (Auto) 85.7 H (38.0-78.0) % Lymph % (Auto) 6.8 L (15.5-49.0) % [place] % (Auto) 7.2 (1.0-12.0) % Eos % (Auto) 0 (0.0-7.0) % Baso % (Auto) 0.3 (0.0-2.0) % Lymph # (Auto) 1.40 L (1.50-4.80) K/mcL [place] # (Auto) 1.48 H (0.10-0.90) K/mcL Eos # (Auto) 0.01 (0.00-0.70) K/mcL Baso # (Auto) 0.07 (0.00-0.30) K/mcL Absolute Neutrophils 17.68 H (1.80-8.00) K/mcL POC Sodium 137 (133-145) mEq/L Sodium 134 (133-145) mmol/L POC Potassium 3.7 (3.3-5.1) mEql/L Potassium 3.7 (3.3-5.1) mmol/L POC Chloride 98 (96-108) mEq/L Chloride 99 (96-108) mmol/L Carbon Dioxide 22 (22-30) mmol/L POC Total CO2 22 (22-30) mmol/L Anion Gap 13.0 (8.0-16.0) POC BUN 11 (6-20) mg/dL BUN 9 (6-20) mg/dL Creatinine 0.7 (0.6-1.1) mg/dL POC Creatinine 0.7 (0.6-1.2) mg/dL GFR Calculation 105 Glucose 216 H (70-105) mg/dL POC Glucose 218 H (70-105) mg/dL Calcium 8.6 (8.6-10.4) mg/dL POC WB Ioniz Calcium 1.10 L (1.16-1.32) mmEq/L Total Bilirubin 0.9 (0.1-1.0) mg/dL AST 19 (<32) U/L ALT 18 (<40) U/L Alkaline Phosphatase 93 (39-117) U/L Total Protein 7.8 (5.9-8.4) gm/dL Albumin 3.6 (3.2-5.2) gm/dL Globulin 4.2 H (2.2-3.7) gm/dL Albumin/Globulin Ratio 0.9 L (1.0-2.3) ED POC Tests ED POC Tests: HUI - Influenza A Positive HUI - Influenza B Negative HUI - SARS Antigen Negative HCG POC Results Negative Discharge Plan Patient/Caregiver Discharge Instructions Pt seen by WAITER AND CASHIER/PA only: No Clinical Impression: Necrotizing fasciitis, Sepsis Patient Disposition: Xfer As Inpt ([facility])
[2021-07-31] MEDS: PIPERACILLIN SODIUM/TAZOBACTAM 4.5 GM in DEXTROSE 5% IN WATER 50 ML IV SCH ×4 (03:00→22:27)
[2021-07-31] MEDS: CLINDAMYCIN 900 MG in DEXTROSE 5% IN WATER 50 ML IV SCH ×4 (03:34→22:26)
[2021-07-31] MEDS ORDERED: VANCOMYCIN PER PHARMACY IV ONE (06:00)
[2021-07-31] MEDS ORDERED: VANCOMYCIN 1,500 MG in 0.9 % SODIUM CHLORIDE 500 ML IV ONE (07:15)
[2021-07-31] MEDS ORDERED: OSELTAMIVIR PHOSPHATE 75 MG CAPSULE PO ONE (07:38)
--- NOTE | 2021-07-31 07:44 | Emergency Department Note ---
HPI General Chief complaint: Cold/Flu Symptoms Stated complaint: cold/flu Time Seen by Provider: 07/30/21 14:32 Source: patient Mode of arrival: wheelchair Limitations: no limitations History of Present Illness HPI Narrative: Narrative: I received this patient in sign out from Dr Burr. For full details, please see his and Dr Smith notes, along w/ surgical consultation and op note. In brief, this patient presented w/ cough/cold symptoms, and was indeed found to be influenza A positive, but more pressingly, was found to have RLQ abdominal wall necrotizing fasciitis on CT. Dr Funez with surgery took the patient to the OR for debridement, and from our end, she was started on clindamycin, vancomycin, a nd zosyn. She has tolerated all interventions well, and is back here in the ED pending disposition. Dr Funez felt that local admission would be reasonable, but at this point there are no beds available. It does seem that we will be getting beds later on this AM, thus patient will remain here for now. Currently she reports minimal abdominal wall pain postop. She notes that her sore throat postintubation has improved, and she denies fevers, chills, chest pain, shortness of breath. She has no complaints at this time. Related Data Home Medications Medication Instructions Recorded Confirmed acetaminophen 325 mg tablet 650 mg PO Q4-6HP PRN tab 06/21/17 07/31/21 atenolol 50 mg tablet 100 mg PO QDAY tab 06/21/17 07/31/21 blood sugar diagnostic (FreeStyle #20 each 06/21/17 07/28/21 Lite Strips) clobetasol 0.05 % scalp solution 1 applic TOPICAL .1-3xWK PRN ml 06/21/17 07/31/21 cyanocobalamin (vitamin B-12) 1,000 mcg PO QDAY 06/21/17 07/31/21 1,000 mcg capsule lisinopril 10 mg tablet 40 mg PO QDAY 06/21/17 07/31/21 multivitamin (Daily Multiple) 1 tab PO QDAY 06/21/17 07/31/21 omeprazole 20 mg capsule,delayed 20 mg PO BID 06/21/17 07/31/21 release Magnesium (oxide/AA chelate) 420 mg PO DAILY 07/31/21 07/31/21 cetirizine 10 mg tablet 10 mg PO HS 07/31/21 07/31/21 dulaglutide 0.75 mg/0.5 mL See Rx Instructions .ROUTE .COMPLEX 07/31/21 07/31/21 subcutaneous pen injector (Trulicity) hydrochlorothiazide 25 mg tablet 25 mg PO QAM 07/31/21 07/31/21 metformin 850 mg tablet 850 mg PO BID 07/31/21 07/31/21 topiramate 25 mg tablet 25 mg PO DAILY 07/31/21 07/31/21 Previous Rx's Medication Instructions Recorded clobetasol 0.05 % topical cream 1 applic TOPICAL BID #45 g 02/28/19 ondansetron HCl 4 mg tablet 4 mg PO Q6H PRN #10 tab 11/30/20 (Zofran) secukinumab 150 mg/mL subcutaneous See Rx Instructions .ROUTE 07/30/21 pen injector (Cosentyx Pen 300 .COMPLEX #12 ml mg/2 Pens () Allergies Allergy/AdvReac Type Severity Reaction Status Date / Time No Known Drug Allergies Allergy Verified 07/30/21 14:24 Review of Systems ROS ROS Narrative: Narrative: All systems ED: reviewed and negative except as stated. PFSH Narrative Patient History Narrative: Narrative: Medical/Surgical/Family History All Active Problems (Updated 07/31/21 @ 07:43 by Steve Stephens MD) Influenza A (Acute) Necrotizing soft tissue infection (Acute) Type 2 diabetes mellitus (Chronic) Simple chronic anemia (Chronic) Chronic depression (Chronic) Psoriasis (Chronic) Knee pain, chronic (Chronic) Asthma, chronic (Chronic) Morbid obesity (Acute) Chronic allergic rhinitis (Chronic) Gastroesophageal reflux disease (Chronic) Hypertension (Chronic) Osteoarthritis (Acute) Psoriatic arthritis (Chronic) Plaque psoriasis (Chronic) Allergic rhinitis (Chronic) Obesity (Chronic) Asthma (Chronic) Anemia (Chronic) Knee pain (Chronic) Seborrhea (Chronic) Depression (Chronic) Hypersomnia (Chronic) Sleep apnea (Chronic) Upper respiratory infection (Chronic) Knee pain, bilateral (Acute) Sore throat (Chronic) Viral upper respiratory tract infection (Chronic) Psoriasis with arthropathy (Chronic) Encounter for long-term (current) use of high-risk medication (Chronic) Nausea (Acute) Necrotizing fasciitis (Acute) Sepsis (Acute) Medical History (Updated 12/09/21 @ 07:43 by Steve Stephens MD) Allergic rhinitis Anemia Asthma Asthma, chronic Chronic allergic rhinitis Chronic depression Depression Encounter for long-term (current) use of high-risk medication Gastroesophageal reflux disease Hypersomnia Hypertension Knee pain Knee pain, bilateral Knee pain, chronic Morbid obesity Obesity Osteoarthritis Plaque psoriasis Psoriasis Psoriasis with arthropathy Psoriatic arthritis Possible Seborrhea Scalp Simple chronic anemia Sleep apnea Sore throat Type 2 diabetes mellitus Upper respiratory infection Viral upper respiratory tract infection Surgical History No pertinent past surgical history Family History Grandfather FHx: diabetes mellitus Maternal Unknown FHx: heart disease FHx: hypertension Family/Other , of colon cancer diagnosed at age 60 Colon cancer Maternal Uncle Social History Smoking Status: Never smoker Alcohol Intake Frequency: does not drink Substance Use: does not use Exam Narrative Narrative: Narrative: General Limitations: no limitations General appearance: Present alert and in no apparent distress Head Head: Present atraumatic and normocephalic ENT ENT: Present normal oropharynx and mucous membranes moist Chest Chest: Present normal inspection and symmetric chest wall rise Respiratory Respiratory: Present normal lung sounds bilaterally; Absent respiratory distress, rales/crackles, wheezes or stridor Cardiovascular Cardiovascular: Present regular rate, normal rhythm, +S1, +S2 and other (2+ B/L DP pulses); Absent systolic murmur or diastolic murmur Adbominal Abdominal: Present soft, tenderness (mild, over incision), normal bowel sounds and other (RLQ abdominal dressing w/ moderate serosanginous DC present); Absent distention, guarding, rebound or rigidity Extremities Extremities: Absent pedal edema Neurological Neurological: Present alert and oriented X3 Psychiatric Psychiatric: Present normal affect Skin Skin: Present warm (WNL) and dry Course Vital Signs Vital signs: Vital Signs Temperature 102.7 F H 07/30/21 14:22 Pulse Rate 121 H 07/30/21 14:22 Respiratory Rate 20 07/30/21 14:22 Blood Pressure 115/67 07/30/21 14:22 Pulse Oximetry (%) 94 07/30/21 14:22 Temperature 97.1 F 07/31/21 15:26 Pulse Rate 81 07/31/21 14:07 Respiratory Rate 26 H 07/31/21 16:18 Blood Pressure 111/68 07/31/21 15:26 Pulse Oximetry (%) 97 07/31/21 15:26 MDM MDM Narrative Medical decision making narrative: Narrative: Pt remained clinically stable in the ED. I cont'd her abx and ordered tamiflu as well. Once beds were available on the floor, she was accepted for admission by the hospitalist, with Dr Funez continuing to follow. Lab Data Result diagrams: 07/31/21 07:18 07/30/21 14:48 Labs: Lab Results 07/30/21 07/30/21 07/31/21 Range/Units 14:48 14:49 07:18 WBC 20.6 H 15.7 H (4.5-11.0) K/mcL RBC 4.27 3.82 (3.59-5.38) M/mcL Hgb 11.5 10.7 L (11.2-15.7) g/dL Hct 35.8 32.1 L (34.1-44.9) % POC Hct 36 (36-48) % MCV 83.8 84.0 (80.0-100.0) fL MCH 26.9 28.0 (26.0-34.0) pg MCHC 32.1 33.3 (31.0-36.0) g/dL RDW 13.2 13.0 (11.5-14.5) % Plt Count 422 334 (140-440) K/mcL MPV 9.7 9.5 (7.4-10.4) fL Neut % (Auto) 85.7 H 92.9 H (38.0-78.0) % Lymph % (Auto) 6.8 L 4.2 L (15.5-49.0) % [place] % (Auto) 7.2 2.8 (1.0-12.0) % Eos % (Auto) 0 0 (0.0-7.0) % Baso % (Auto) 0.3 0.1 (0.0-2.0) % Lymph # (Auto) 1.40 L 0.66 L (1.50-4.80) K/mcL [place] # (Auto) 1.48 H 0.44 (0.10-0.90) K/mcL Eos # (Auto) 0.01 0 (0.00-0.70) K/mcL Baso # (Auto) 0.07 0.01 (0.00-0.30) K/mcL Absolute Neutrophils 17.68 H 14.59 H (1.80-8.00) K/mcL POC Sodium 137 (133-145) mEq/L Sodium 134 (133-145) mmol/L POC Potassium 3.7 (3.3-5.1) mEql/L Potassium 3.7 (3.3-5.1) mmol/L POC Chloride 98 (96-108) mEq/L Chloride 99 (96-108) mmol/L Carbon Dioxide 22 (22-30) mmol/L POC Total CO2 22 (22-30) mmol/L Anion Gap 13.0 (8.0-16.0) POC BUN 11 (6-20) mg/dL BUN 9 (6-20) mg/dL Creatinine 0.7 (0.6-1.1) mg/dL POC Creatinine 0.7 (0.6-1.2) mg/dL GFR Calculation 105 Glucose 216 H (70-105) mg/dL POC Glucose 218 H (70-105) mg/dL Calcium 8.6 (8.6-10.4) mg/dL POC WB Ioniz Calcium 1.10 L (1.16-1.32) mmEq/L Total Bilirubin 0.9 (0.1-1.0) mg/dL AST 19 (<32) U/L ALT 18 (<40) U/L Alkaline Phosphatase 93 (39-117) U/L Total Protein 7.8 (5.9-8.4) gm/dL Albumin 3.6 (3.2-5.2) gm/dL Globulin 4.2 H (2.2-3.7) gm/dL Albumin/Globulin Ratio 0.9 L (1.0-2.3) 07/31/21 Range/Units 07:18 WBC (4.5-11.0) K/mcL RBC (3.59-5.38) M/mcL Hgb (11.2-15.7) g/dL Hct (34.1-44.9) % POC Hct 30 L (36-48) % MCV (80.0-100.0) fL MCH (26.0-34.0) pg MCHC (31.0-36.0) g/dL RDW (11.5-14.5) % Plt Count (140-440) K/mcL MPV (7.4-10.4) fL Neut % (Auto) (38.0-78.0) % Lymph % (Auto) (15.5-49.0) % [place] % (Auto) (1.0-12.0) % Eos % (Auto) (0.0-7.0) % Baso % (Auto) (0.0-2.0) % Lymph # (Auto) (1.50-4.80) K/mcL [place] # (Auto) (0.10-0.90) K/mcL Eos # (Auto) (0.00-0.70) K/mcL Baso # (Auto) (0.00-0.30) K/mcL Absolute Neutrophils (1.80-8.00) K/mcL POC Sodium 137 (133-145) mEq/L Sodium (133-145) mmol/L POC Potassium 3.6 (3.3-5.1) mEql/L Potassium (3.3-5.1) mmol/L POC Chloride 105 (96-108) mEq/L Chloride (96-108) mmol/L Carbon Dioxide (22-30) mmol/L POC Total CO2 17 L (22-30) mmol/L Anion Gap (8.0-16.0) POC BUN 7 (6-20) mg/dL BUN (6-20) mg/dL Creatinine (0.6-1.1) mg/dL POC Creatinine 0.4 L (0.6-1.2) mg/dL GFR Calculation Glucose (70-105) mg/dL POC Glucose 306 H (70-105) mg/dL Calcium (8.6-10.4) mg/dL POC WB Ioniz Calcium 1.02 L (1.16-1.32) mmEq/L Total Bilirubin (0.1-1.0) mg/dL AST (<32) U/L ALT (<40) U/L Alkaline Phosphatase (39-117) U/L Total Protein (5.9-8.4) gm/dL Albumin (3.2-5.2) gm/dL Globulin (2.2-3.7) gm/dL Albumin/Globulin Ratio (1.0-2.3) ED POC Tests ED POC Tests: HUI - Influenza A Positive HUI - Influenza B Negative HUI - SARS Antigen Negative HCG POC Results Negative Discharge Plan Patient/Caregiver Discharge Instructions Pt seen by CENTRIFUGAL EXTRACTOR OPERATOR/PA only: No Clinical Impression: Necrotizing fasciitis, Sepsis, Influenza A Patient Disposition: Xfer As Inpt ([facility]) Discharge Date/Time: 07/30/21 18:40
[2021-07-31 08:23] LABS: POC Blood Urea Nitrogen 7 mg/dL (6-20); POC CO2 17 mmol/L (22-30); POC Calcium, Ionized 1.02 mmEq/L (1.16-1.32); POC Chloride 105 mEq/L (96-108); POC Creatinine 0.4 mg/dL (0.6-1.2); POC Glucose, Random 306 mg/dL (70-105); POC Hematocrit 30 % (36-48); POC Potassium 3.6 mEql/L (3.3-5.1); POC Sodium 137 mEq/L (133-145)
--- NOTE | 2021-07-31 08:45 | EKG ---
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 Measurements Intervals [place] Rate: 93 P: 55 OR: 163 QRS: 62 QRSD: 91 T: 35 QT: 370 QTc: 461 Interpretive Statements Sinus rhythm Electronically Signed On 07-31-2021 8:45:29 PST by Grayson Fermin M.D. /store/[email or web address]/[id number]
[2021-07-31 09:00] LABS: Basophils # (Auto) 0.01 K/mcL (0.00-0.30); Basophils % (Auto) 0.1 % (0.0-2.0); Eosinophils # (Auto) 0 K/mcL (0.00-0.70); Eosinophils % (Auto) 0 % (0.0-7.0); Hematocrit 32.1 % (34.1-44.9); Hemoglobin 10.7 g/dL (11.2-15.7); Lymphocytes # (Auto) 0.66 K/mcL (1.50-4.80); Lymphocytes % (Auto) 4.2 % (15.5-49.0); Mean Corpuscular HGB Conc 33.3 g/dL (31.0-36.0); Mean Platelet Volume 9.5 fL (7.4-10.4); Monocytes # (Auto) 0.44 K/mcL (0.10-0.90); Monocytes % (Auto) 2.8 % (1.0-12.0); Neutrophils % (Auto) 92.9 % (38.0-78.0); Platelet Count 334 K/mcL (140-440); RBC 3.82 M/mcL (3.59-5.38); WBC 15.7 K/mcL (4.5-11.0)
--- NOTE | 2021-07-31 11:36 | Internal Med History&Physical ---
HPI History of Present Illness Patient information: Note initiated : 07/31/21 at 11:34 am Service Date, if different from initiated Date: [] Patient: Olivia Courtney a 45 y/o F admitted on for cold/flu. Chief Complaint: [] History of present illness: Ms. Courtney is a 45 year old F Patient presents the ED with generalized body aches headache nausea vomiting fever chills and right lower abdominal pain. Work-up revealed a cellulitic appearance of the right lower quadrant abdomen. Imaging revealed appear to be necrotizing fasciitis. She had a WBC of 20 and a fever of 102. Dr. Funez took her for debridement last night. There is no i npatient bed available for her yesterday so she was taken back to the ED after surgery. Today she is afebrile today and her leukocytosis improving. She is also on monoclonal antibody to interleukin for her psoriasis. Review of Systems: Pertinent positives as above. Denies headache/fever/chills/nausea/vomiting/chest pain/cough/dyspnea/diarrhea. Many 10 point review of system reviewed negative PFSH PFSH All Active Problems (Updated 07/31/21 @ 07:43 by Steve Stephens MD) Influenza A (Acute) Necrotizing soft tissue infection (Acute) Type 2 diabetes mellitus (Chronic) Simple chronic anemia (Chronic) Chronic depression (Chronic) Psoriasis (Chronic) Knee pain, chronic (Chronic) Asthma, chronic (Chronic) Morbid obesity (Acute) Chronic allergic rhinitis (Chronic) Gastroesophageal reflux disease (Chronic) Hypertension (Chronic) Osteoarthritis (Acute) Psoriatic arthritis (Chronic) Plaque psoriasis (Chronic) Allergic rhinitis (Chronic) Obesity (Chronic) Asthma (Chronic) Anemia (Chronic) Knee pain (Chronic) Seborrhea (Chronic) Depression (Chronic) Hypersomnia (Chronic) Sleep apnea (Chronic) Upper respiratory infection (Chronic) Knee pain, bilateral (Acute) Sore throat (Chronic) Viral upper respiratory tract infection (Chronic) Psoriasis with arthropathy (Chronic) Encounter for long-term (current) use of high-risk medication (Chronic) Nausea (Acute) Necrotizing fasciitis (Acute) Sepsis (Acute) Medical History (Updated 07/31/21 @ 07:43 by Steve Stephens MD) Allergic rhinitis Anemia Asthma Asthma, chronic Chronic allergic rhinitis Chronic depression Depression Encounter for long-term (current) use of high-risk medication Gastroesophageal reflux disease Hypersomnia Hypertension Knee pain Knee pain, bilateral Knee pain, chronic Morbid obesity Obesity Osteoarthritis Plaque psoriasis Psoriasis Psoriasis with arthropathy Psoriatic arthritis Possible Seborrhea Scalp Simple chronic anemia Sleep apnea Sore throat Type 2 diabetes mellitus Upper respiratory infection Viral upper respiratory tract infection Surgical History No pertinent past surgical history Family History Grandfather FHx: diabetes mellitus Maternal Unknown FHx: heart disease FHx: hypertension Family/Other , of colon cancer diagnosed at age 60 Colon cancer Maternal Uncle Social History marital status: occupational status: employed occupation: [employer] in [place] [employer] alcohol intake frequency: does not drink substance use type: does not use MEDS/ALLERGIES Home Medications and Allergies Home Medications Medication Instructions Recorded Confirmed Type acetaminophen 325 mg tablet 650 mg PO .Q4-6H PRN tab 06/21/17 07/28/21 History alcohol swabs (Alcohol Wipes) pad TOPICAL 06/21/17 07/28/21 History atenolol 50 mg tablet 100 mg PO QDAY tab 06/21/17 07/28/21 History blood sugar diagnostic (FreeStyle #20 each 06/21/17 07/28/21 History Lite Strips) clobetasol 0.05 % scalp solution 1 applic TOPICAL .1-3xWK PRN ml 06/21/17 07/28/21 History cyanocobalamin (vitamin B-12) 1,000 mcg PO QDAY 06/21/17 07/28/21 History 1,000 mcg capsule lancets [FreeStyle Lancets] MISCELLANE 06/21/17 07/28/21 History lisinopril 10 mg tablet 10 mg PO QDAY 06/21/17 07/28/21 History metformin 750 mg tablet,extended 750 mg PO QDAY 06/21/17 07/28/21 History release 24 hr multivitamin (Daily Multiple) 1 tab PO QDAY 06/21/17 07/28/21 History omeprazole 20 mg capsule,delayed 20 mg PO BID 06/21/17 07/28/21 History release Freestyle Lite Blood Glucose .ROUTE 06/23/17 07/28/21 History Machine clobetasol 0.05 % topical cream 1 applic TOPICAL BID #45 g 02/28/19 07/28/21 Rx ondansetron HCl 4 mg tablet 4 mg PO Q6H PRN #10 tab 11/30/20 07/28/21 Rx (Zofran) secukinumab 150 mg/mL subcutaneous See Rx Instructions .ROUTE 07/30/21 Rx pen injector (Cosentyx Pen 300 .COMPLEX #12 ml mg/2 Pens () Allergies Allergy/AdvReac Type Severity Reaction Status Date / Time No Known Drug Allergies Allergy Verified 07/30/21 14:24 EXAM Constitutional Vitals: Temp Pulse Resp BP Pulse Ox 101.1 F H 82 29 H 117/70 96 07/30/21 20:24 07/31/21 10:42 07/30/21 20:26 07/31/21 07:01 07/31/21 10:42 Exam: General: Alert, Awake, No acute Distress, morbid obesity Eyes/N/T: EOMI, PERRL, Head/Neck: neck supple, normocephalic atraumatic CV: RRR, No murmurs, normal s1/s2 Pulm: Clear b/l, no wheezing/rhonchi/rales Abd: soft, +BS x4, abdominal dressing in place over surgical site Ext: no clubbing/cyanosis/edema Neuro: Alert, no focal deficits, moves all extremities, CN 2-12 grossly intact, symmetrical strength b/l upper/lower, sensations intact b/l upper/lower Skin: warm/dry DATA Data Completed and Pending Labs: Labs from last 24 hours 07/31/21 07/31/21 07/30/21 07:18 07:18 14:49 WBC 15.7 H 20.6 H RBC 3.82 4.27 Hgb 10.7 L 11.5 Hct 32.1 L 35.8 POC Hct 30 L MCV 84.0 83.8 MCH 28.0 26.9 MCHC 33.3 32.1 RDW 13.0 13.2 Plt Count 334 422 MPV 9.5 9.7 Neut % (Auto) 92.9 H 85.7 H Lymph % (Auto) 4.2 L 6.8 L Tripp % (Auto) 2.8 7.2 Eos % (Auto) 0 0 Baso % (Auto) 0.1 0.3 Lymph # (Auto) 0.66 L 1.40 L Tripp # (Auto) 0.44 1.48 H Eos # (Auto) 0 0.01 Baso # (Auto) 0.01 0.07 Absolute Neutrophils 14.59 H 17.68 H POC Sodium 137 Sodium POC Potassium 3.6 Potassium POC Chloride 105 Chloride Carbon Dioxide POC Total CO2 17 L Anion Gap POC BUN 7 BUN Creatinine POC Creatinine 0.4 L GFR Calculation Glucose POC Glucose 306 H Calcium POC WB Ioniz Calcium 1.02 L Total Bilirubin AST ALT Alkaline Phosphatase Total Protein Albumin Globulin Albumin/Globulin Ratio 07/30/21 14:48 WBC RBC Hgb Hct POC Hct 36 MCV MCH MCHC RDW Plt Count MPV Neut % (Auto) Lymph % (Auto) Tripp % (Auto) Eos % (Auto) Baso % (Auto) Lymph # (Auto) Tripp # (Auto) Eos # (Auto) Baso # (Auto) Absolute Neutrophils POC Sodium 137 Sodium 134 POC Potassium 3.7 Potassium 3.7 POC Chloride 98 Chloride 99 Carbon Dioxide 22 POC Total CO2 22 Anion Gap 13.0 POC BUN 11 BUN 9 Creatinine 0.7 POC Creatinine 0.7 GFR Calculation 105 Glucose 216 H POC Glucose 218 H Calcium 8.6 POC WB Ioniz Calcium 1.10 L Total Bilirubin 0.9 AST 19 ALT 18 Alkaline Phosphatase 93 Total Protein 7.8 Albumin 3.6 Globulin 4.2 H Albumin/Globulin Ratio 0.9 L A/P Narrative A/P Narrative: A: *Necrotizing fasciitis right lower abdominal wall and cellulitis: s/p I&D (07/30) *Sepsis: 2/2 above, improving *Influenza A: *DM: *HTN: low on admit *Morbid obesity: *Anemia, chronic: *Psoriasis: on Secukinumab (monoclonal ab to IL-17), follows with Dr. Panchal *GERD: P: -Vanc/Zosyn/clinda. MRSA screen positive -Surgery following -wound care -SSI -hold BB/ACEI for low BP -hold home Secukinumab -Tamiflu -Reconcile home medications -pt/ot -ppx: heparin / home ppi Time Spent With Patient Time: Total time spent is greater than 50% in coordination of care (as documented) at patient's floor/unit and/or counseling patient:
[2021-07-31] MEDS ORDERED: POTASSIUM CHLORIDE 40 MEQ in DEXTROSE 5% IN WATER 500 ML IV PRN (12:45)
[2021-07-31] MEDS ORDERED: DEXTROSE 31 GM ORAL.SUSP PO PRN (12:45)
[2021-07-31] MEDS ORDERED: VANCOMYCIN PER PHARMACY IV SCH (12:45)
[2021-07-31] MEDS ORDERED: ONDANSETRON 4 MG/2 ML VIAL IV PRN (12:45)
[2021-07-31] MEDS ORDERED: SENNOSIDES 1 TABLET PO PRN (12:45)
[2021-07-31] MEDS ORDERED: DEXTROSE 50% 50 ML VIAL IV PRN (12:45)
[2021-07-31] MEDS ORDERED: PROCHLORPERAZINE 10 MG/2 ML VIAL IV PRN (12:45)
[2021-07-31] MEDS ORDERED: POLYETHYLENE GLYCOL 3350 17 GM PACKET PO PRN (12:45)
[2021-07-31] MEDS ORDERED: POTASSIUM CHLORIDE 20 MEQ TABLET PO PRN ×2 (12:45)
[2021-07-31] MEDS ORDERED: IPRATROPIUM/ALBUTEROL 3 ML AMPUL.NEB NEB PRN (12:45)
[2021-07-31] MEDS ORDERED: MAGNESIUM SULFATE 2 GM/50 ML BAG IV PRN (12:45)
[2021-07-31] MEDS: HYDROcodone/APAP 5/325MG TABLET PO PRN (14:02)
[2021-07-31] MEDS: INSULIN LISPRO 1 UNIT/0.01 ML UNIT SQ SCH ×3 (14:02→20:35)
[2021-07-31] MEDS: 0.9 % SODIUM CHLORIDE 10 ML SYRINGE IV SCH ×2 (15:13→20:30)
[2021-07-31] MEDS: HEPARIN 5,000 UNIT/ML VIAL SQ SCH ×2 (15:13→22:26)
[2021-07-31] MEDS: morphine 4 MG/ML VIAL IV PRN (15:46)
[2021-07-31] MEDS ORDERED: LABETALOL 5 MG/ML ML IV PRN (17:06)
[2021-07-31] MEDS: OMEPRAZOLE 20 MG CAPSULE PO SCH (17:52)
[2021-07-31 18:16] LABS: Blood Urea Nitrogen 8 mg/dL (6-20); Calcium 8.1 mg/dL (8.6-10.4); Carbon Dioxide 18 mmol/L (22-30); Chloride 101 mmol/L (96-108); Glomerular Filtration Rate 117; Glucose 273 mg/dL (70-105)
--- NOTE | 2021-07-31 20:07 | General Surgery Progress Note ---
SUBJECTIVE Subjective Patient information: Note initiated : 07/31/21 at 1600 Service Date, if different from initiated Date: [] Patient: Olivia Courtney 45 y/o F admitted on 07/31/21 for cold/flu. Chief Complaint: [Necrotizing Soft Tissue Infection] Overall she feels much better today. She does have some pain at the debridement site but well controlled with current medications. Constitutional Vitals: Vital Signs Temp Pulse Resp BP Pulse Ox 97.1 F 81 26 H 111/68 97 07/31/21 15:26 07/31/21 14:07 07/31/21 16:18 07/31/21 15:26 07/31/21 15:26 Period Temp Pulse Resp BP Sys/Ocampo Pulse Ox Last 24 Hr 97.1 F-101.2 F 71-114 18-34 91-144/42-97 89-100 Intake and Output 07/31/21 07/31/21 07/31/21 05:59 13:59 21:59 Intake Total 206 550 536 Output Total 150 Balance 206 550 386 Weight 370 lb Patient Weight 08/01/21 05:59 Weight 370 lb Intake & Output: Intake & Output 07/31/21 07/31/21 07/31/21 05:59 13:59 21:59 Intake Total 206 550 536 Output Total 150 Balance 206 550 386 Weight 370 lb Intake: IV 206 550 56 Cleocin 900 mg In Dextrose 5% 56 56 in Water 50 ml @ 100 mls/hr IV Q8H [facility] Rx#:[id number] Zosyn 4.5 gm In Dextrose 5% in 50 50 Water 50 ml @ 100 mls/hr IV Q8H [facility] Rx#:[id number] Vancomycin 1,500 mg In Sodium 500 Chloride 0.9% 500 ml @ 333.3 mls/hr IV ONCE ONE Rx#: [id number] Oral 480 Output: Void Amount 150 Other: Meal Lunch Percent of Meal Consumed 100% Feeding Ability Independent Urine Appearance Clear Urine Color Bright Yellow # Voids 1 General appearance: cooperative and no acute distress GI/Abdominal Additional comments: Directed exam to the wound site demonstrates a very healthy looking fresh wound bed with no evidence of additional necrosis or infection. The wound is packed open again with fresh minimally damp Kerlex and a dry over dressing is placed over that. A/P Assessment and plan (1) Necrotizing soft tissue infection: Assessment and plan: POD #1 Emergent Debridement of a Necrotizing Soft Tissue Infection The wound looks healthy on exam today without evidence of additional necrosis or infection Continue daily wound care and look to place VAC in the next couple of days if the wound continues to look healthy and there is no evidence of recurrent infection or issue Continue current regimen of broad spectrum IV ABs until sensitivities allow for narrowed coverage - appreciate Hospitalist management and assistance Status: Acute Time Spent With Patient Time: Total time spent is greater than 50% in coordination of care (as documented) at patient's floor/unit and/or counseling patient:
[2021-07-31] MEDS: OSELTAMIVIR PHOSPHATE 75 MG CAPSULE PO SCH (20:29)
[2021-07-31] MEDS: VANCOMYCIN 1,500 MG in 0.9 % SODIUM CHLORIDE 500 ML IV SCH (20:30)
[2021-07-31] MEDS: DOCUSATE SODIUM 100 MG CAPSULE PO SCH (20:35)
[2021-07-31] MEDS: ACETAMINOPHEN 325 MG TABLET PO PRN (23:18)
[2021-08-01] MEDS: INSULIN LISPRO 1 UNIT/0.01 ML UNIT SQ SCH ×6 (00:30→20:36)
[2021-08-01] MEDS: morphine 4 MG/ML VIAL IV PRN (02:46)
[2021-08-01] MEDS: PIPERACILLIN SODIUM/TAZOBACTAM 4.5 GM in DEXTROSE 5% IN WATER 50 ML IV SCH ×3 (05:27→23:29)
[2021-08-01] MEDS: HEPARIN 5,000 UNIT/ML VIAL SQ SCH ×3 (05:28→23:29)
[2021-08-01] MEDS: 0.9 % SODIUM CHLORIDE 10 ML SYRINGE IV SCH ×3 (05:28→23:31)
[2021-08-01] MEDS: CLINDAMYCIN 900 MG in DEXTROSE 5% IN WATER 50 ML IV SCH ×2 (07:34→15:15)
[2021-08-01] MEDS: OMEPRAZOLE 20 MG CAPSULE PO SCH ×2 (07:34→16:20)
--- NOTE | 2021-08-01 07:38 | Operative Note ---
DATE OF OPERATION: 07/30/2021 PREOPERATIVE DIAGNOSIS: Morbid obesity and diabetes with a necrotizing right lower abdominal wall soft tissue infection. POSTOPERATIVE DIAGNOSIS: Morbid obesity and diabetes with a necrotizing right lower abdominal wall soft tissue infection. OPERATIVE PROCEDURE: Emergent exploration and debridement of right lower quadrant abdominal wall necrotizing soft tissue infection. ANESTHESIA: General. SURGEON: Tico Funez M.D. PREOPERATIVE MEDICATIONS: 1. Zosyn. 2. Clindamycin. 3. Vancomycin. INDICATIONS: The patient is a 45-year-old female who presented to the Emergency Room earlier today with symptomatology of nausea, weakness, fatigue, low blood pressure and some soreness down in the right lower abdominal region. On exam, she had some redness and erythema in the area of the right lower abdomen, in and around involving the folds of her pannus. She underwent imaging including a CT scan, which demonstrated some subcutaneous air in this region without an overlying opening in the skin and concerns of a necrotizing soft tissue infection. We were asked to see her in consultation. She has not had prior infections of this sort. She is diabetic and does have issues with severe truncal obesity and has multiple pannus folds in the lower abdomen that are difficult to maintain for hygiene purposes. She does not inject her insulin around this area at all and does not feel there was any iatrogenic break in the skin in this area. She began to experience pain and discomfort in the region over the past few days and it became increasingly more sore along with the other symptomatology that she experienced. She has not had prior soft tissue infections of this sort. We met with her in the Emergency Room, saw her in consultation and recommended emergency surgery as she appeared to be increasingly unstable from a hemodynamic standpoint and I had concerns about a rapidly progressive infection. Risks, benefits, potential complications, and alternative treatment options were all discussed with her at length. These include, but not limited to bleeding, infection, cosmetic dissatisfaction, abnormal scarring, the certainty of an open wound, potential for prolonged wound care and non-wound healing, the potential need for additional procedures or surgeries, the potential for [id number] cardiopulmonary demise or post-procedural cardiopulmonary demise and the potential need for aggressive further surgical debridements. All of this was discussed at length. She wished to undergo the procedure and gave full informed consent. DESCRIPTION OF PROCEDURE: The patient was taken to the OR and placed supine on the OR table, placed under general anesthesia and intubated. Bilateral SCDs were applied. All pressure sensitive areas were carefully padded. When she was positioned as comfortably as we could position her with the entire OR team working to satisfactorily position her on the table, the area of concern in the abdominal wall was widely prepped and draped in a sterile fashion. Procedure began with an elliptical incision to remove the large central pole of that appeared to be the focus of this and we removed a roughly 8 x 15 cm area of abdominal wall skin and underlying adipose tissue that then brought us directly down into a large necrotic foul smelling a suppurative cavity of extensive fluid and tissue necrosis. This was all aggressively debrided back to briskly bleeding and healthy tissues, both at the fascial level, which did not appear to be involved and also the adipose level, which appeared to contain the predominance of the infection at this point. Once we felt we had adequately debrided back to healthy tissues in all directions and had brisk bleeding from these wounds surfaces, we then controlled the oozing with cautery and irrigated out extensively with a 1 liter bag utilizing the pulse lavage system. Once I felt we had adequately debrided this and there was no residual visible necrotic graying or foul tissue, we went ahead and packed the wound open. Of note, we took liberal cultures initially both of tissue and swabs of the underlying fluid and they were all sent to the lab and a stat Gram stain as well as cultures were requested. We sent a section of excised skin and adipose tissue to pathology for formal documentation of the disease process. We then packed the wound as mentioned with intact, moistened large Kerlix rolls, two in total were able to be packed into this fairly cavernous wound that measured roughly 8 x 15 cm at the surface with a depth of roughly 30-40 cm into the abdominal wall pannus and down to the level of the abdominal wall fascia, which was not breached or any way, shape or form resected in the course of this procedure, but the infection had just extended down roughly to the point of that, but had not directly involved. Dry dressings were applied and secured in place. This completed the procedure. The patient was awakened, extubated, and transferred to PACU in satisfactory condition. She tolerated the procedure well and indeed appeared to be improving hemodynamically at the completion of it. COMPLICATIONS: None apparent. FINDINGS: As discussed above. BW:ruba Job ID: [id number] Doc ID: [id number] Tico Funez M.D.
--- NOTE | 2021-08-01 07:40 | Internal Med Progress Note ---
SUBJECTIVE Subjective Patient information: Note initiated : 08/01/21 at 7:33 am Service Date, if different from initiated Date: [] Patient: Olivia Courtney a 45 y/o F admitted on 07/31/21 for cold/flu. Chief Complaint: [] Interval history: History of present illness: Ms. Courtney is a 45 year old F Patient presents the ED with generalized body aches headache nausea vomiting fever chills and right lower abdominal pain. Work-up revealed a cellulitic appearance of the right lower quadrant abdomen. Imaging revealed appear to be necrotizing fasciitis. She had a WBC of 20 and a fever of 102. Dr. Funez took her for debridement last night. There is no inpatient bed available for her yesterday so she was taken back to the ED after surgery. Today she is afebrile today and her leukocytosis improving. She is also on m 08/01 Poor sleep but otherwise feels better. Afebrile. Blood pressure low normal. Leukocytosis improving. Blood glucose elevated and will obtain A1c and start basal insulin while here Metformin held given recent contrast study. Start her other oral hypoglycemic. Review of Systems: denies headache/fever/chills/nausea/vomiting/chest or abdominal pain/cough/dyspnea/diarrhea. Otherwise see above. Constitutional Vitals: Vital Signs Temp Pulse Resp BP Pulse Ox 97.7 F 84 22 95/68 98 08/01/21 04:09 08/01/21 04:13 08/01/21 04:13 08/01/21 04:09 08/01/21 04:13 Period Temp Pulse Resp BP Sys/Ocampo Pulse Ox Last 24 Hr 97.1 F-101.1 F 73-94 15-33 95-144/61-97 93-100 Intake and Output 07/31/21 08/01/21 08/01/21 21:59 05:59 13:59 Intake Total 536 1456 Output Total 150 Balance 386 1456 Weight 168.736 kg Intake & Output: Intake & Output 07/31/21 08/01/21 08/01/21 21:59 05:59 13:59 Intake Total 536 1456 Output Total 150 Balance 386 1456 Weight 168.736 kg Intake: IV 56 656 Cleocin 900 mg In Dextrose 5% 56 56 in Water 50 ml @ 100 mls/hr IV Q8H [facility] Rx#:[id number] Zosyn 4.5 gm In Dextrose 5% in 100 Water 50 ml @ 100 mls/hr IV Q8H [facility] Rx#:[id number] Vancomycin 1,500 mg In Sodium 500 Chloride 0.9% 500 ml @ 333.3 mls/hr IV Q12H [facility] Rx#: [id number] Oral 480 800 Output: Void Amount 150 Other: Meal Lunch Percent of Meal Consumed 100% Feeding Ability Independent Urine Appearance Clear Clear Urine Color Bright Yellow Pale # Voids 1 Exam: General: Alert, Awake, No acute Distress, morbid obesity Eyes/N/T: EOMI, Head/Neck: neck supple, CV: RRR, No murmurs, Pulm: Clear b/l, no wheezing/rhonchi/rales Abd: soft, +BS x4, abdominal dressing in place over surgical site Ext: no clubbing/cyanosis/edema Neuro: Alert, no focal deficits, moves all extremities, Skin: warm/dry OBJ DATA Labs CBC & Chem 7: 08/01/21 05:25 07/31/21 16:43 Labs: Abnormal Lab Results 07/31/21 07/31/21 07/31/21 16:43 07:18 07:18 WBC 15.7 H Hgb 10.7 L Hct 32.1 L POC Hct 30 L Neut % (Auto) 92.9 H Lymph % (Auto) 4.2 L Lymph # (Auto) 0.66 L Johnson # (Auto) Absolute Neutrophils 14.59 H Carbon Dioxide 18 L POC Total CO2 17 L Creatinine 0.5 L POC Creatinine 0.4 L Glucose 273 H POC Glucose 306 H Calcium 8.1 L POC WB Ioniz Calcium 1.02 L Globulin Albumin/Globulin Ratio 07/30/21 07/30/21 14:49 14:48 WBC 20.6 H Hgb Hct POC Hct Neut % (Auto) 85.7 H Lymph % (Auto) 6.8 L Lymph # (Auto) 1.40 L Johnson # (Auto) 1.48 H Absolute Neutrophils 17.68 H Carbon Dioxide POC Total CO2 Creatinine POC Creatinine Glucose 216 H POC Glucose 218 H Calcium POC WB Ioniz Calcium 1.10 L Globulin 4.2 H Albumin/Globulin Ratio 0.9 L Meds: Medications Acetaminophen (Acetaminophen 325 Mg Tablet) 650 mg PO Q6HP PRN; Protocol PRN Reason: Per Pain Protocol/Fever > 101 Last Admin: 07/31/21 23:18 Dose: 650 mg Documented by: Hydrocodone Bitart/Acetaminophen (Hydrocodone/Apap 5/325mg Tablet) 1 tab PO Q4 HP PRN PRN Reason: PAIN LEVEL 3-6 Last Admin: 07/31/21 14:02 Dose: 1 tab Documented by: Albuterol/Ipratropium (Ipratropium/Albuterol 3 Ml Ampul.Neb) 3 ml NEB Q4HP PRN PRN Reason: Shortness Of Breath Atenolol (Atenolol 50 Mg Tablet) 100 mg PO QDAY [facility] Dextrose (Dextrose 50% 50 Ml Vial) 0 ml IV UD PRN PRN Reason: Hypoglycemia Diagnostic Test (Pha) (Accu-Chek 1 Each Strip) 1 each FS Q4H [facility] Last Admin: 08/01/21 03:42 Dose: 1 each Documented by: Docusate Sodium (Docusate Sodium 100 Mg Capsule) 100 mg PO BID [facility] Last Admin: 07/31/21 20:35 Dose: Not Given Documented by: Glucose (Dextrose 31 Gm Oral.Susp) 15 gm PO PRN PRN PRN Reason: Hypoglycemia Heparin Sodium (Porcine) (Heparin 5,000 Unit/Ml Vial) 5,000 unit SQ Q8 [facility] Last Admin: 08/01/21 05:28 Dose: 5,000 unit Documented by: Clindamycin Phosphate 900 mg/ (Dextrose) 56 mls @ 100 mls/hr IV Q8H [facility]; Protocol Last Infusion: 07/31/21 23:26 Dose: Infused Documented by: Piperacillin Sod/Tazobactam (Sod 4.5 gm/ Dextrose) 50 mls @ 100 mls/hr IV Q8H [facility]; Protocol Last Infusion: 08/01/21 05:57 Dose: Infused Documented by: Potassium Chloride 40 meq/ (Dextrose) 520 mls @ 130 mls/hr IV UD PRN PRN Reason: Potassium < 3 Magnesium Sulfate (Magnesium Sulfate) 2 gm in 50 mls @ 50 mls/hr IV UD PRN PRN Reason: Magnesium </= 1.6 Vancomycin HCl 1,500 mg/ (Sodium Chloride) 500 mls @ 333.3 mls/hr IV Q12H [facility] Last Infusion: 07/31/21 22:40 Dose: Infused Documented by: Insulin Human Lispro (Insulin Lispro 1 Unit/0.01 Ml Unit) 0 unit SQ Q4H [facility]; Protocol Last Admin: 08/01/21 03:42 Dose: 6 units Documented by: Labetalol HCl (Labetalol 5 Mg/Ml Ml) 0 mg IV Q2HP PRN PRN Reason: Hypertension Morphine Sulfate (Morphine 4 Mg/Ml Vial) 0 mg IV Q3HP PRN PRN Reason: Pain Last Admin: 08/01/21 02:46 Dose: 2 mg Documented by: Omeprazole (Omeprazole 20 Mg Capsule) 20 mg PO BIDAC [facility] Last Admin: 07/31/21 17:52 Dose: 20 mg Documented by: Ondansetron HCl (Ondansetron 4 Mg/2 Ml Vial) 4 mg IV Q4HP PRN PRN Reason: Nausea And Vomiting Oseltamivir Phosphate (Oseltamivir Phosphate 75 Mg Capsule) 75 mg PO BID [facility] Last Admin: 07/31/21 20:29 Dose: 75 mg Documented by: Polyethylene Glycol (Polyethylene Glycol 3350 17 Gm Packet) 17 gm PO DAILYP PRN PRN Reason: Constipation Potassium Chloride (Potassium Chloride 20 Meq Tablet) 40 meq PO UD PRN PRN Reason: Potssium is 3-3.5 Potassium Chloride (Potassium Chloride 20 Meq Tablet) 40 meq PO UD PRN PRN Reason: Potassium < 3 Prochlorperazine (Prochlorperazine 10 Mg/2 Ml Vial) 10 mg IV Q6HP PRN PRN Reason: Nausea And Vomiting Senna (Sennosides 1 Tablet) 2 tab PO DAILYP PRN PRN Reason: Constipation Sodium Chloride (0.9 % Sodium Chloride 10 Ml Syringe) 10 ml IV Q8 [facility] Last Admin: 08/01/21 05:28 Dose: 10 ml Documented by: Topiramate (Topiramate 25 Mg Tablet) 25 mg PO DAILY [facility] Vancomycin HCl (Vancomycin Per Pharmacy) 1 order IV UD [facility]; Protocol A/P Narrative A/P Narrative: A: *Necrotizing fasciitis right lower abdominal wall and cellulitis: s/p I&D (07/30) -WC with gram-positive cocci in chains and gram-negative bacillus *Sepsis: 2/2 above, improved *Influenza A: *Met acidosis: 2/2 above *DM: A1c *HTN: low on admit *Morbid obesity: *Anemia, chronic: *Psoriasis: on Secukinumab (monoclonal ab to IL-17), follows with Dr. Panchal *GERD: P: -Vanc/Zosyn/clinda. MRSA screen positive, pending WC for de-escalation -Surgery following -wound care, wound vac per surgery -hold BB/ACEI for low BP -SSI, metformin held for another day -hold home Secukinumab -Tamiflu -pt/ot -ppx: heparin / home ppi Time Spent With Patient Time: Total time spent is greater than 50% in coordination of care (as documented) at patient's floor/unit and/or counseling patient:
[2021-08-01 07:52] LABS: Basophils # (Auto) 0.03 K/mcL (0.00-0.30); Basophils % (Auto) 0.2 % (0.0-2.0); Eosinophils # (Auto) 0.08 K/mcL (0.00-0.70); Eosinophils % (Auto) 0.6 % (0.0-7.0); Hematocrit 29.4 % (34.1-44.9); Hemoglobin 9.7 g/dL (11.2-15.7); Lymphocytes # (Auto) 1.75 K/mcL (1.50-4.80); Lymphocytes % (Auto) 13.6 % (15.5-49.0); Mean Cell Volume 83.3 fL (80.0-100.0); Mean Platelet Volume 10.4 fL (7.4-10.4); Monocytes # (Auto) 0.79 K/mcL (0.10-0.90); Monocytes % (Auto) 6.1 % (1.0-12.0); Neutrophils % (Auto) 79.5 % (38.0-78.0); Platelet Count 352 K/mcL (140-440); RBC 3.53 M/mcL (3.59-5.38); Red Cell Distribution Width 13.3 % (11.5-14.5); WBC 12.9 K/mcL (4.5-11.0)
[2021-08-01] MEDS: OSELTAMIVIR PHOSPHATE 75 MG CAPSULE PO SCH ×2 (08:45→20:39)
[2021-08-01] MEDS: TOPIRAMATE 25 MG TABLET PO SCH (08:45)
[2021-08-01] MEDS: DOCUSATE SODIUM 100 MG CAPSULE PO SCH ×2 (08:45→20:40)
[2021-08-01 08:50] LABS: ALT/SGPT 12 U/L (<40); AST/SGOT 11 U/L (<32); Albumin 3.1 gm/dL (3.2-5.2); Albumin/Globulin Ratio 0.8 (1.0-2.3); Alkaline Phosphatase 81 U/L (39-117); Bilirubin,Direct < 0.2 mg/dL (0-0.3); Bilirubin,Total 0.3 mg/dL (0.1-1.0); Blood Urea Nitrogen 9 mg/dL (6-20); Calcium 7.8 mg/dL (8.6-10.4); Carbon Dioxide 21 mmol/L (22-30); Chloride 104 mmol/L (96-108); Globulin 3.9 gm/dL (2.2-3.7); Glomerular Filtration Rate 110; Glucose 217 mg/dL (70-105); Lactate Dehydrogenase 109 U/L (135-225); Phosphorous 2.2 mg/dL (2.5-4.5); Triglycerides 117 mg/dL (<150); Uric Acid 5.4 mg/dL (2.5-8.0)
[2021-08-01] MEDS: ACETAMINOPHEN 325 MG TABLET PO PRN ×2 (08:50→14:29)
[2021-08-01] MEDS ORDERED: INSULIN GLARGINE, HUMAN 1 UNIT/0.01 ML SQ SCH (09:00)
[2021-08-01] MEDS ORDERED: ATENOLOL 50 MG TABLET PO SCH (09:00)
[2021-08-01] MEDS ORDERED: VANCOMYCIN 2,000 MG in 0.9 % SODIUM CHLORIDE 500 ML IV SCH (09:00)
[2021-08-01] MEDS: PHOSPHORUS 250 MG TABLET PO SCH ×2 (09:04→20:39)
[2021-08-01] MEDS: VANCOMYCIN 1,500 MG in 0.9 % SODIUM CHLORIDE 500 ML IV SCH (11:16)
[2021-08-01] MEDS: HYDROcodone/APAP 5/325MG TABLET PO PRN ×2 (11:28→20:40)
[2021-08-01] MEDS: MUPIROCIN OINT 2% 22GM NARES SCH ×2 (11:40→20:41)
[2021-08-01] MEDS: MELATONIN 3 MG TABLET PO SCH (20:39)
[2021-08-01] MEDS ORDERED: diphenhydrAMINE 25 MG CAPSULE PO PRN (21:00)
[2021-08-02] MEDS: INSULIN LISPRO 1 UNIT/0.01 ML UNIT SQ SCH ×6 (00:22→20:17)
[2021-08-02] MEDS: ACETAMINOPHEN 325 MG TABLET PO PRN (04:35)
[2021-08-02] MEDS: HEPARIN 5,000 UNIT/ML VIAL SQ SCH ×3 (05:44→22:57)
[2021-08-02] MEDS: 0.9 % SODIUM CHLORIDE 10 ML SYRINGE IV SCH ×3 (05:45→22:57)
[2021-08-02] MEDS: PIPERACILLIN SODIUM/TAZOBACTAM 4.5 GM in DEXTROSE 5% IN WATER 50 ML IV SCH ×3 (05:45→22:56)
[2021-08-02 06:58] LABS: Basophils # (Auto) 0.06 K/mcL (0.00-0.30); Basophils % (Auto) 0.8 % (0.0-2.0); Eosinophils % (Auto) 2.6 % (0.0-7.0); Hematocrit 30.4 % (34.1-44.9); Hemoglobin 9.9 g/dL (11.2-15.7); Lymphocytes # (Auto) 1.92 K/mcL (1.50-4.80); Lymphocytes % (Auto) 24.7 % (15.5-49.0); Mean Cell Volume 84.4 fL (80.0-100.0); Mean Corpuscular HGB Conc 32.6 g/dL (31.0-36.0); Mean Platelet Volume 9.7 fL (7.4-10.4); Monocytes # (Auto) 0.51 K/mcL (0.10-0.90); Monocytes % (Auto) 6.6 % (1.0-12.0); Neutrophils % (Auto) 65.3 % (38.0-78.0); Platelet Count 372 K/mcL (140-440); Red Cell Distribution Width 13.2 % (11.5-14.5); WBC 7.8 K/mcL (4.5-11.0)
[2021-08-02] MEDS: OMEPRAZOLE 20 MG CAPSULE PO SCH ×2 (07:09→16:47)
[2021-08-02] MEDS: HYDROcodone/APAP 5/325MG TABLET PO PRN ×3 (07:13→22:58)
--- NOTE | 2021-08-02 07:27 | Internal Med Progress Note ---
SUBJECTIVE Subjective Patient information: Note initiated : 08/02/21 at 7:20 am Service Date, if different from initiated Date: [] Patient: Olivia Courtney a 45 y/o F admitted on 07/31/21 for cold/flu. Chief Complaint: [] Interval history: History of present illness: Ms. Courtney is a 45 year old F Patient presents the ED with generalized body aches headache nausea vomiting fever chills and right lower abdominal pain. Work-up revealed a cellulitic appearance of the right lower quadrant abdomen. Imaging revealed appear to be necrotizing fasciitis. She had a WBC of 20 and a fever of 102. Dr. Funez took her for debridement last night. There is no inpatient bed available for her yesterday so she was taken back to the ED after surgery. Today she is afebrile today and her leukocytosis improving. She is also on m 08/01 Poor sleep but otherwise feels better. Afebrile. Blood pressure low normal. Leukocytosis improving. Blood glucose elevated and will obtain A1c and start basal insulin while here Metformin held given recent contrast study. Start her other oral hypoglycemic. 08/02 No overnight event or new complaints. Leukocytosis resolved. Acidosis resolved. Wound VAC per surgery and discharge once cleared by surgery and once final wound culture back. Review of Systems: denies headache/fever/chills/nausea/vomiting/chest or abdominal pain/cough/dyspnea/diarrhea. Otherwise see above. Constitutional Vitals: Vital Signs Temp Pulse Resp BP Pulse Ox 97.6 F 81 20 130/61 97 08/02/21 04:00 08/02/21 04:00 08/02/21 04:00 08/02/21 04:00 08/02/21 04:00 Period Temp Pulse Resp BP Sys/Ocampo Pulse Ox Last 24 Hr 97.6 F-98.9 F 69-102 9-29 94-130/55-77 94-100 Intake and Output 08/01/21 08/02/21 08/02/21 21:59 05:59 13:59 Intake Total 106 650 50 Output Total 300 Balance -194 650 50 Weight 171.912 kg Intake & Output: Intake & Output 08/01/21 08/02/21 08/02/21 21:59 05:59 13:59 Intake Total 106 650 50 Output Total 300 Balance -194 650 50 Weight 171.912 kg Intake: IV 106 50 50 Cleocin 900 mg In Dextrose 5% 56 in Water 50 ml @ 100 mls/hr IV Q8H [facility] Rx#:[id number] Zosyn 4.5 gm In Dextrose 5% in 50 50 50 Water 50 ml @ 100 mls/hr IV Q8H [facility] Rx#:[id number] Oral 600 Output: Void Amount 300 Other: Meal Lunch Percent of Meal Consumed 100% Feeding Ability Independent Urine Appearance Cloudy Urine Color Straw Urine Odor Strong # Voids 2 Exam: General: Alert, Awake, No acute Distress, morbid obesity Eyes/N/T: EOMI, Head/Neck: neck supple, CV: RRR, No murmurs, Pulm: Clear b/l, no wheezing/rhonchi/rales Abd: soft, +BS x4, abdominal dressing in place over surgical site Ext: no clubbing/cyanosis/edema Neuro: Alert, no focal deficits, moves all extremities, Skin: warm/dry OBJ DATA Labs CBC & Chem 7: 08/02/21 05:37 08/02/21 05:36 Labs: Abnormal Lab Results 08/02/21 08/01/21 08/01/21 05:37 05:25 05:24 WBC 12.9 H RBC 3.53 L Hgb 9.9 L 9.7 L Hct 30.4 L 29.4 L POC Hct Neut % (Auto) 79.5 H Lymph % (Auto) 13.6 L Lymph # (Auto) [place] # (Auto) Absolute Neutrophils 10.21 H Carbon Dioxide POC Total CO2 Creatinine POC Creatinine Glucose POC Glucose Hemoglobin A1c 8.0 H Calcium POC WB Ioniz Calcium Phosphorus Lactate Dehydrogenase Albumin Globulin Albumin/Globulin Ratio 08/01/21 07/31/21 07/31/21 05:24 16:43 07:18 WBC RBC Hgb Hct POC Hct 30 L Neut % (Auto) Lymph % (Auto) Lymph # (Auto) [place] # (Auto) Absolute Neutrophils Carbon Dioxide 21 L 18 L POC Total CO2 17 L Creatinine 0.5 L POC Creatinine 0.4 L Glucose 217 H 273 H POC Glucose 306 H Hemoglobin A1c Calcium 7.8 L 8.1 L POC WB Ioniz Calcium 1.02 L Phosphorus 2.2 L Lactate Dehydrogenase 109 L Albumin 3.1 L Globulin 3.9 H Albumin/Globulin Ratio 0.8 L 07/31/21 07/30/2107/30/21 07:18 14:49 14:48 WBC 15.7 H 20.6 H RBC Hgb 10.7 L Hct 32.1 L POC Hct Neut % (Auto) 92.9 H 85.7 H Lymph % (Auto) 4.2 L 6.8 L Lymph # (Auto) 0.66 L 1.40 L [place] # (Auto) 1.48 H Absolute Neutrophils 14.59 H 17.68 H Carbon Dioxide POC Total CO2 Creatinine POC Creatinine Glucose 216 H POC Glucose 218 H Hemoglobin A1c Calcium POC WB Ioniz Calcium 1.10 L Phosphorus Lactate Dehydrogenase Albumin Globulin 4.2 H Albumin/Globulin Ratio 0.9 L Meds: Medications Acetaminophen (Acetaminophen 325 Mg Tablet) 650 mg PO Q6HP PRN; Protocol PRN Reason: Per Pain Protocol/Fever > 101 Last Admin: 08/02/21 04:35 Dose: 650 mg Documented by: Hydrocodone Bitart/Acetaminophen (Hydrocodone/Apap 5/325mg Tablet) 1 tab PO Q4HP PRN PRN Reason: PAIN LEVEL 3-6 Last Admin: 08/02/21 07:13 Dose: 1 tab Documented by: Albuterol/Ipratropium (Ipratropium/Albuterol 3 Ml Ampul.Neb) 3 ml NEB Q4HP PRN PRN Reason: Shortness Of Breath Dextrose (Dextrose 50% 50 Ml Vial) 0 ml IV UD PRN PRN Reason: Hypoglycemia Diagnostic Test (Pha) (Accu-Chek 1 Each Strip) 1 each FS Q4H [facility] Last Admin: 08/02/21 07:09 Dose: 1 each Documented by: Diphenhydramine HCl (Diphenhydramine 25 Mg Capsule) 25 mg PO HSP PRN PRN Reason: Insomnia Docusate Sodium (Docusate Sodium 100 Mg Capsule) 100 mg PO BID [facility] Last Admin: 08/01/21 20:40 Dose: Not Given Documented by: Glucose (Dextrose 31 Gm Oral.Susp) 15 gm PO PRN PRN PRN Reason: Hypoglycemia Heparin Sodium (Porcine) (Heparin 5,000 Unit/Ml Vial) 5,000 unit SQ Q8 [facility] Last Admin: 08/02/21 05:44 Dose: 5,000 unit Documented by: Piperacillin Sod/Tazobactam (Sod 4.5 gm/ Dextrose) 50 mls @ 100 mls/hr IV Q8H [facility]; Protocol Last Infusion: 08/02/21 06:20 Dose: Infused Documented by: Potassium Chloride 40 meq/ (Dextrose) 520 mls @ 130 mls/hr IV UD PRN PRN Reason: Potassium < 3 Magnesium Sulfate (Magnesium Sulfate) 2 gm in 50 mls @ 50 mls/hr IV UD PRN PRN Reason: Magnesium </= 1.6 Insulin Glargine (Insulin Glargine, Human 1 Unit/0.01 Ml) 10 unit SQ DAILY [facility] Last Admin: 08/01/21 08:44 Dose: 10 units Documented by: Insulin Human Lispro (Insulin Lispro 1 Unit/0.01 Ml Unit) 0 unit SQ Q4H [facility]; Protocol Last Admin: 08/02/21 07:09 Dose: 2 units Documented by: Labetalol HCl (Labetalol 5 Mg/Ml Ml) 0 mg IV Q2HP PRN PRN Reason: Hypertension Melatonin (Melatonin 3 Mg Tablet) 3 mg PO QHS [facility] Last Admin: 08/01/21 20:39 Dose: 3 mg Documented by: Morphine Sulfate (Morphine 4 Mg/Ml Vial) 0 mg IV Q3HP PRN PRN Reason: Pain Last Admin: 08/01/21 02:46 Dose: 2 mg Documented by: Mupirocin (Mupirocin Oint 2% 22gm) 1 dose NARES BID [facility] Last Admin: 08/01/21 20:41 Dose: 1 dose Documented by: [facility]epraz[facility] ([facility]) [facility] Last Admin: 08/02/21 07:09 Dose: 20 mg Documented by: Ondansetron HCl (Ondansetron 4 Mg/2 Ml Vial) 4 mg IV Q4HP PRN PRN Reason: Nausea And Vomiting Oseltamivir Phosphate (Oseltamivir Phosphate 75 Mg Capsule) 75 mg PO BID [facility] Stop: 08/04/21 21:01 Last Admin: 08/01/21 20:39 Dose: 75 mg Documented by: Dulaglutide [ Trulicity] 0.75 Mg/0 .5 Ml Pen Injector 1 dose SC We@0900 [facility] Polyethylene Glycol (Polyethylene Glycol 3350 17 Gm Packet) 17 gm PO DAILYP PRN PRN Reason: Constipation Potassium Chloride (Potassium Chloride 20 Meq Tablet) 40 meq PO UD PRN PRN Reason: Potssium is 3-3.5 Potassium Chloride (Potassium Chloride 20 Meq Tablet) 40 meq PO UD PRN PRN Reason: Potassium < 3 Prochlorperazine (Prochlorperazine 10 Mg/2 Ml Vial) 10 mg IV Q6HP PRN PRN Reason: Nausea And Vomiting Senna (Sennosides 1 Tablet) 2 tab PO DAILYP PRN PRN Reason: Constipation Sodium Chloride (0.9 % Sodium Chloride 10 Ml Syringe) 10 ml IV Q8 [facility] Last Admin: 08/02/21 05:45 Dose: 10 ml Documented by: Topiramate (Topiramate 25 Mg Tablet) 25 mg PO DAILY [facility] Last Admin: 08/01/21 08:45 Dose: 25 mg Documented by: A/P Narrative A/P Narrative: A: *Necrotizing soft tissue Right lower abdominal wall: s/p I&D (07/30) -WC Strep agalactiae & GNB *Sepsis: 2/2 above, resolved *Influenza A: *Met acidosis: 2/2 above *DM: A1c 8.0 *HTN: low on admit *Morbid obesity: *Anemia, chronic: *Psoriasis: on Secukinumab (monoclonal ab to IL-17), follows with Dr. Panchal *GERD: *Hypophos: P: -Vanc/Zosyn/clinda- deescalate to zosyn, pending final WC -Surgery following, wound vac per surgery -wound care -hold BB/ACEI/hctz for low BP, restart gradually -SSI, metformin s/p IV study, basal -hold home Secukinumab -Tamiflu -pt/ot -ppx: heparin / home ppi Time Spent With Patient Time: Total time spent is greater than 50% in coordination of care (as documented) at patient's floor/unit and/or counseling patient:
[2021-08-02 07:49] LABS: ALT/SGPT 12 U/L (<40); AST/SGOT 14 U/L (<32); Albumin 2.8 gm/dL (3.2-5.2); Albumin/Globulin Ratio 0.7 (1.0-2.3); Alkaline Phosphatase 71 U/L (39-117); Bilirubin,Direct < 0.2 mg/dL (0-0.3); Bilirubin,Total 0.2 mg/dL (0.1-1.0); Blood Urea Nitrogen 7 mg/dL (6-20); Calcium 7.8 mg/dL (8.6-10.4); Carbon Dioxide 22 mmol/L (22-30); Chloride 107 mmol/L (96-108); Globulin 3.9 gm/dL (2.2-3.7); Glomerular Filtration Rate 110; Glucose 159 mg/dL (70-105); Lactate Dehydrogenase 101 U/L (135-225); Phosphorous 3.7 mg/dL (2.5-4.5); Triglycerides 161 mg/dL (<150); Uric Acid 5.7 mg/dL (2.5-8.0)
[2021-08-02] MEDS ORDERED: ATENOLOL 50 MG TABLET PO SCH (09:00)
[2021-08-02] MEDS: TOPIRAMATE 25 MG TABLET PO SCH (09:15)
[2021-08-02] MEDS: DOCUSATE SODIUM 100 MG CAPSULE PO SCH ×2 (09:15→20:15)
[2021-08-02] MEDS: OSELTAMIVIR PHOSPHATE 75 MG CAPSULE PO SCH ×2 (09:15→20:13)
[2021-08-02] MEDS: INSULIN GLARGINE, HUMAN 1 UNIT/0.01 ML SQ SCH (09:16)
[2021-08-02] MEDS: MUPIROCIN OINT 2% 22GM NARES SCH ×2 (09:16→20:15)
--- NOTE | 2021-08-02 12:49 | General Surgery Progress Note ---
SUBJECTIVE Subjective Patient information: Note initiated : 08/02/21 at 12:45 pm Service Date, if different from initiated Date: [] Patient: Olivia Courtney a 45 y/o F admitted on 07/31/21 for cold/flu. Chief Complaint: [POD #3 Exploration and Debridement of Necrotizing Soft Tissue Infection] Overall she continues to feel much better with far less pain now at the debridement site. Dressing changed earlier today and wound reportedly looked very good - VAC not yet in place Constitutional Vitals: Vital Signs Temp Pulse Resp BP Pulse Ox 97.2 F 76 17 142/72 97 08/02/21 12:00 08/02/21 12:00 08/02/21 12:00 08/02/21 12:00 08/02/21 12:00 Period Temp Pulse Resp BP Sys/Ocampo Pulse Ox Last 24 Hr 97.2 F-98.6 F 74-85 16-20 121-142/61-77 93-98 Intake and Output 08/01/21 08/02/21 08/02/21 21:59 05:59 13:59 Intake Total 106 650 650 Output Total 300 Balance -194 650 650 Weight 379 lb Intake & Output: Intake & Output 08/01/21 08/02/21 08/02/21 21:59 05:59 13:59 Intake Total 106 650 650 Output Total 300 Balance -194 650 650 Weight 379 lb Intake: IV 106 50 50 Cleocin 900 mg In Dextrose 5% 56 in Water 50 ml @ 100 mls/hr IV Q8H [facility] Rx#:[id number] Zosyn 4.5 gm In Dextrose 5% in 50 50 50 Water 50 ml @ 100 mls/hr IV Q8H [facility] Rx#:[id number] Oral 600 600 Output: Void Amount 300 Other: Meal Lunch Percent of Meal Consumed 100% Feeding Ability Independent Urine Appearance Cloudy Urine Color Straw Urine Odor Strong # Voids 2 General appearance: cooperative and no acute distress GI/Abdominal Additional comments: Dressings in place, wound not re examined at this time A/P Narrative A/P Narrative: POD #3 Exploration and Debridement of Necrotizing Soft Tissue Infection RLQ Abdominal Wall Doing well Awaiting VAC placement and home approval No plans for additional surgery at this time unless adverse changes occur Time Spent With Patient Time: Total time spent is greater than 50% in coordination of care (as documented) at patient's floor/unit and/or counseling patient:
[2021-08-02] MEDS: MELATONIN 3 MG TABLET PO SCH (20:14)
[2021-08-03] MEDS: INSULIN LISPRO 1 UNIT/0.01 ML UNIT SQ SCH ×7 (00:32→23:00)
[2021-08-03] MEDS: PIPERACILLIN SODIUM/TAZOBACTAM 4.5 GM in DEXTROSE 5% IN WATER 50 ML IV SCH ×3 (06:01→22:14)
[2021-08-03] MEDS: HEPARIN 5,000 UNIT/ML VIAL SQ SCH ×3 (06:01→22:14)
[2021-08-03] MEDS: 0.9 % SODIUM CHLORIDE 10 ML SYRINGE IV SCH ×3 (06:01→22:14)
[2021-08-03] MEDS: OMEPRAZOLE 20 MG CAPSULE PO SCH ×2 (07:19→17:06)
--- NOTE | 2021-08-03 07:27 | Internal Med Progress Note ---
SUBJECTIVE Subjective Patient information: Note initiated : 08/03/21 at 7:23 am Service Date, if different from initiated Date: [] Patient: Olivia Courtney a 45 y/o F admitted on 07/31/21 for cold/flu. Chief Complaint: [] Interval history: History of present illness: Ms. oCurtney is a 45 year old F Patient presents the ED with generalized body aches headache nausea vomiting fever chills and right lower abdominal pain. Work-up revealed a cellulitic appearance of the right lower quadrant abdomen. Imaging revealed appear to be necrotizing fasciitis. She had a WBC of 20 and a fever of 102. Dr. Funez took her for debridement last night. There is no inpatient bed available for her yesterday so she was taken back to the ED after surgery. Today she is afebrile today and her leukocytosis improving. She is also on m 08/01 Poor sleep but otherwise feels better. Afebrile. Blood pressure low normal. Leukocytosis improving. Blood glucose elevated and will obtain A1c and start basal insulin while here Metformin held given recent contrast study. Start her other oral hypoglycemic. 08/02 No overnight event or new complaints. Leukocytosis resolved. Acidosis resolved. Wound VAC per surgery and discharge once cleared by surgery and once final wound culture back. 08/03 No overnight event or new complaints. Wound cultures growing strep agalactiae and anaerobic cultures growing Prevotella Bivia Awaiting wound VAC for discharge. Review of Systems: denies headache/fever/chills/nausea/vomiting/chest or abdominal pain/cough/dys pnea/diarrhea. Otherwise see above. Constitutional Vitals: Vital Signs Temp Pulse Resp BP Pulse Ox 98.2 F 76 20 137/69 98 08/03/21 06:58 08/03/21 04:00 08/03/21 06:58 08/03/21 06:58 08/03/21 06:58 Period Temp Pulse Resp BP Sys/Ocampo Pulse Ox Last 24 Hr 97 F-98.6 F 74-88 16-20 124-144/65-82 93-98 Intake and Output 08/02/21 08/03/21 08/03/21 21:59 05:59 13:59 Intake Total 950 1650 Balance 950 1650 Weight 173.386 kg Intake & Output: Intake & Output 08/02/21 08/03/21 08/03/21 21:59 05:59 13:59 Intake Total 950 1650 Balance 950 1650 Weight 173.386 kg Intake: IV 50 50 Lactated Ringers 1,000 ml @ 20 0 mls/hr IV .Q24H [facility] Rx#: [id number] Zosyn 4.5 gm In Dextrose 5% in 50 50 Water 50 ml @ 100 mls/hr IV Q8H [facility] Rx#:[id number] Oral 900 1600 Other: Meal Lunch Percent of Meal Consumed 100% Feeding Ability Independent Urine Appearance Clear Urine Color Straw Urine Odor Normal # Voids 3 Exam: General: Alert, Awake, No acute Distress, morbid obesity Eyes/N/T: EOMI, Head/Neck: neck supple, CV: RRR, No murmurs, Pulm: Clear b/l, no wheezing/rhonchi/rales Abd: soft, +BS x4, abdominal dressing in place over surgical site Ext: no clubbing/cyanosis/edema Neuro: Alert, no focal deficits, moves all extremities, Skin: warm/dry OBJ DATA Labs CBC & Chem 7: 08/02/21 05:37 08/02/21 05:36 Labs: Abnormal Lab Results 08/02/21 08/02/21 08/01/21 05:37 05:36 05:25 WBC 12.9 H RBC 3.53 L Hgb 9.9 L 9.7 L Hct 30.4 L 29.4 L POC Hct Neut % (Auto) 79.5 H Lymph % (Auto) 13.6 L Lymph # (Auto) Absolute Neutrophils 10.21 H Carbon Dioxide POC Total CO2 Creatinine POC Creatinine Glucose 159 H POC Glucose Hemoglobin A1c Calcium 7.8 L POC WB Ioniz Calcium Phosphorus Lactate Dehydrogenase 101 L Albumin 2.8 L Globulin 3.9 H Albumin/Globulin Ratio 0.7 L Triglycerides 161 H 08/01/21 08/01/21 07/31/21 05:24 05:24 16:43 WBC RBC Hgb Hct POC Hct Neut % (Auto) Lymph % (Auto) Lymph # (Auto) Absolute Neutrophils Carbon Dioxide 21 L 18 L POC Total CO2 Creatinine 0.5 L POC Creatinine Glucose 217 H 273 H POC Glucose Hemoglobin A1c 8.0 H Calcium 7.8 L 8.1 L POC WB Ioniz Calcium Phosphorus 2.2 L Lactate Dehydrogenase 109 L Albumin 3.1 L Globulin 3.9 H Albumin/Globulin Ratio 0.8 L Triglycerides 07/31/21 07/31/21 07:18 07:18 WBC 15.7 H RBC Hgb 10.7 L Hct 32.1 L POC Hct 30 L Neut % (Auto) 92.9 H Lymph % (Auto) 4.2 L Lymph # (Auto) 0.66 L Absolute Neutrophils 14.59 H Carbon Dioxide POC Total CO2 17 L Creatinine POC Creatinine 0.4 L Glucose POC Glucose 306 H Hemoglobin A1c Calcium POC WB Ioniz Calcium 1.02 L Phosphorus Lactate Dehydrogenase Albumin Globulin Albumin/Globulin Ratio Triglycerides Meds: Medications Acetaminophen (Acetaminophen 325 Mg Tablet) 650 mg PO Q6HP PRN; Protocol PRN Reason: Per Pain Protocol/Fever > 101 Last Admin: 08/02/21 04:35 Dose: 650 mg Documented by: Hydrocodone Bitart/Acetaminophen (Hydrocodone/Apap 5/325mg Tablet) 1 tab PO Q4HP PRN PRN Reason: PAIN LEVEL 3-6 Last Admin: 08/02/21 22:58 Dose: 1 tab Documented by: Albuterol/Ipratropium (Ipratropium/Albuterol 3 Ml Ampul.Neb) 3 ml NEB Q4HP PRN PRN Reason: Shortness Of Breath Atenolol (Atenolol 50 Mg Tablet) 50 mg PO DAILY [facility] Last Admin: 08/02/21 09:15 Dose: 50 mg Documented by: Dextrose (Dextrose 50% 50 Ml Vial) 0 ml IV UD PRN PRN Reason: Hypoglycemia Diagnostic Test (Pha) (Accu-Chek 1 Each Strip) 1 each FS Q4H [facility] Last Admin: 08/03/21 07:19 Dose: 1 each Documented by: Diphenhydramine HCl (Diphenhydramine 25 Mg Capsule) 25 mg PO HSP PRN PRN Reason: Insomnia Docusate Sodium (Docusate Sodium 100 Mg Capsule) 100 mg PO BID [facility] Last Admin: 08/02/21 20:15 Dose: Not Given Documented by: Glucose (Dextrose 31 Gm Oral.Susp) 15 gm PO PRN PRN PRN Reason: Hypoglycemia Heparin Sodium (Porcine) (Heparin 5,000 Unit/Ml Vial) 5,000 unit SQ Q8 [facility] Last Admin: 08/03/21 06:01 Dose: 5,000 unit Documented by: Piperacillin Sod/Tazobactam (Sod 4.5 gm/ Dextrose) 50 mls @ 100 mls/hr IV Q8H [facility]; Protocol Last Admin: 08/03/21 06:01 Dose: 100 mls/hr Documented by: Potassium Chloride 40 meq/ (Dextrose) 520 mls @ 130 mls/hr IV UD PRN PRN Reason: Potassium < 3 Magnesium Sulfate (Magnesium Sulfate) 2 gm in 50 mls @ 50 mls/hr IV UD PRN PRN Reason: Magnesium </= 1.6 Insulin Glargine (Insulin Glargine, Human 1 Unit/0.01 Ml) 20 unit SQ DAILY [facility] Last Admin: 08/02/21 09:16 Dose: 20 units Documented by: Insulin Human Lispro (Insulin Lispro 1 Unit/0.01 Ml Unit) 0 unit SQ Q4H [facility]; Protocol Last Admin: 08/03/21 07:19 Dose: 2 units Documented by: Labetalol HCl (Labetalol 5 Mg/Ml Ml) 0 mg IV Q2HP PRN PRN Reason: Hypertension Melatonin (Melatonin 3 Mg Tablet) 3 mg PO QHS [facility] Last Admin: 08/02/21 20:14 Dose: 3 mg Documented by: Morphine Sulfate (Morphine 4 Mg/Ml Vial) 0 mg IV Q3HP PRN PRN Reason: Pain Last Admin: 08/01/21 02:46 Dose: 2 mg Documented by: Mupirocin (Mupirocin Oint 2% 22gm) 1 dose NARES BID [facility] Last Admin: 08/02/21 20:15 Dose: 1 dose Documented by: Omeprazole ([facility] 20 Mg [facility]apsule) [facility] Last Admin: 08/03/21 07:19 Dose: 20 mg Documented by: Ondansetron HCl (Ondansetron 4 Mg/2 Ml Vial) 4 mg IV Q4HP PRN PRN Reason: Nausea And Vomiting Oseltamivir Phosphate (Oseltamivir Phosphate 75 Mg Capsule) 75 mg PO BID [facility] Stop: 08/04/21 21:01 Last Admin: 08/02/21 20:13 Dose: 75 mg Documented by: Dulaglutide [ Trulicity] 0.75 Mg/0 .5 Ml Pen Injector 1 dose SC We@0900 [facility] Polyethylene Glycol (Polyethylene Glycol 3350 17 Gm Packet) 17 gm PO DAILYP PRN PRN Reason: Constipation Potassium Chloride (Potassium Chloride 20 Meq Tablet) 40 meq PO UD PRN PRN Reason: Potssium is 3-3.5 Potassium Chloride (Potassium Chloride 20 Meq Tablet) 40 meq PO UD PRN PRN Reason: Potassium < 3 Prochlorperazine (Prochlorperazine 10 Mg/2 Ml Vial) 10 mg IV Q6HP PRN PRN Reason: Nausea And Vomiting Senna (Sennosides 1 Tablet) 2 tab PO DAILYP PRN PRN Reason: Constipation Sodium Chloride (0.9 % Sodium Chloride 10 Ml Syringe) 10 ml IV Q8 [facility] Last Admin: 08/03/21 06:01 Dose: 10 ml Documented by: Topiramate (Topiramate 25 Mg Tablet) 25 mg PO DAILY [facility] Last Admin: 08/02/21 09:15 Dose: 25 mg Documented by: A/P Narrative A/P Narrative: A: *Necrotizing soft tissue Right lower abdominal wall: s/p I&D (07/30) -WC Strep agalactiae & Prevotella bivia *Sepsis: 2/2 above, resolved *Influenza A: *Met acidosis: 2/2 above *DM: A1c 8.0 *HTN: low on admit *Morbid obesity: *Anemia, chronic: *Psoriasis: on Secukinumab (monoclonal ab to IL-17), follows with Dr. Panchal *GERD: *Hypophos: resolved P: -Zosyn deescalate to Augmentin. Ok to d/c from Hospitalist standpoint, await surgery/wound vac clearance -Surgery following, wound vac per surgery -wound care -restarted BB/ACEI, hold hctz for now -SSI, -hold home Secukinumab -Tamiflu -pt/ot -ppx: heparin / home ppi Time Spent With Patient Time: Total time spent is greater than 50% in coordination of care (as documented) at patient's floor/unit and/or counseling patient:
[2021-08-03] MEDS: LISINOPRIL 10 MG TABLET PO SCH (08:52)
[2021-08-03] MEDS: OSELTAMIVIR PHOSPHATE 75 MG CAPSULE PO SCH ×2 (08:52→22:14)
[2021-08-03] MEDS: ATENOLOL 50 MG TABLET PO SCH (08:53)
[2021-08-03] MEDS: INSULIN GLARGINE, HUMAN 1 UNIT/0.01 ML SQ SCH (08:53)
[2021-08-03] MEDS: DOCUSATE SODIUM 100 MG CAPSULE PO SCH ×2 (08:53→22:13)
[2021-08-03] MEDS: TOPIRAMATE 25 MG TABLET PO SCH (08:53)
[2021-08-03] MEDS: MUPIROCIN OINT 2% 22GM NARES SCH ×2 (08:53→22:14)
--- NOTE | 2021-08-03 11:17 | Discharge Summary ---
Discharge Provider Provider Patient information: Note initiated : 08/03/21 at 11:16 am Service Date, if different from initiated Date: [] Patient: Olivia Courtney 45 y/o F admitted on 07/31/21 for cold/flu. Chief Complaint: [] Date of admission: 07/31/21 12:43 Primary care physician: GIGI Hernandez Consults: 07/30/21 Consult to Physician [CONS] Stat Comment: Consulting Provider: Demetrio Thomas Reason For Exam: Physician to Consult 07/31/21 12:45 Consult to Physician [CONS] Routine Comment: Consulting Provider: Tico Funez Reason For Exam: Physician to Consult Discharge Meds Discharge Medications Home Medications acetaminophen 325 mg tablet 650 mg PO Q4-6HP PRN tab 06/21/17 [History Confirmed 07/31/21 Last Taken 07/29/21] atenolol 50 mg tablet 100 mg PO QDAY tab 06/21/17 [History Confirmed 07/31/21 Last Taken 05/15/18] clobetasol 0.05 % scalp solution 1 applic TOPICAL .1-3xWK PRN ml 06/21/17 [History Confirmed 07/31/21 Last Taken 07/29/21] cyanocobalamin (vitamin B-12) 1,000 mcg capsule 1,000 mcg PO QDAY 06/21/17 [History Confirmed 07/31/21 Last Taken 07/29/21] lisinopril 10 mg tablet 40 mg PO QDAY 06/21/17 [History Confirmed 07/31/21 Last Taken 07/29/21] multivitamin (Daily Multiple) 1 tab PO QDAY 06/21/17 [History Confirmed 07/31/21 Last Taken 07/29/21] omeprazole 20 mg capsule,delayed release 20 mg PO BID 06/21/17 [History Confirmed 07/31/21 Last Taken 07/29/21] clobetasol 0.05 % topical cream 1 applic TOPICAL BID #45 g 02/28/19 [Rx Confirmed 07/31/21 Last Taken 07/29/21] ondansetron HCl 4 mg tablet (Zofran) 4 mg PO Q6H PRN #10 tab 11/30/20 [Rx Confirmed 07/31/21 Last Taken 07/29/21] secukinumab 150 mg/mL subcutaneous pen injector (Cosentyx Pen 300 mg/2 Pens () See Rx Instructions .ROUTE .COMPLEX #12 ml 07/30/21 [Rx Confirmed 07/31/21 Last Taken 07/29/21] Magnesium (oxide/AA chelate) 420 mg PO DAILY 07/31/21 [History Confirmed 07/31/21 Last Taken Unknown] cetirizine 10 mg tablet 10 mg PO HS 07/31/21 [History Confirmed 07/31/21 Last Taken Unknown] dulaglutide 0.75 mg/0.5 mL subcutaneous pen injector (Trulicity) 0.75 mg SUBCUT WEEKLY 07/31/21 [History Confirmed 08/01/21 Last Taken Unknown] hydrochlorothiazide 25 mg tablet 25 mg PO QAM 07/31/21 [History Confirmed 07/31/21 Last Taken Unknown] metformin 850 mg tablet 850 mg PO BID 07/31/21 [History Confirmed 07/31/21 Last Taken 07/29/21] topiramate 25 mg tablet 25 mg PO DAILY 07/31/21 [History Confirmed 07/31/21 Last Taken 07/29/21] amoxicillin 875 mg-potassium clavulanate 125 mg tablet (Augmentin) 1 tab PO Q12H #10 tab 08/03/21 [Rx Last Taken Unknown] COURSE Hospital Course Hospital course: Interval history: History of present illness: Ms. Courtney is a 45 year old F Patient presents the ED with generalized body aches headache nausea vomiting fever chills and right lower abdominal pain. Work-up revealed a cellulitic appearance of the right lower quadrant abdomen. Imaging revealed appear to be necrotizing fasciitis. She had a WBC of 20 and a fever of 102. Dr. Funez took her for debridement last night. There is no inpatient bed available for her yesterday so she was taken back to the ED after surgery. Today she is afebrile today and her leukocytosis improving. She is also on m 08/01 Poor sleep but otherwise feels better. Afebrile. Blood pressure low normal. Leukocytosis improving. Blood glucose elevated and will obtain A1c and start basal insulin while here Metformin held given recent contrast study. Start her other oral hypoglycemic. 08/02 No overnight event or new complaints. Leukocytosis resolved. Acidosis resolved. Wound VAC per surgery and discharge once cleared by surgery and once final wound culture back. 08/03 No overnight event or new complaints. Wound cultures growing strep agalactiae and anaerobic cultures growing Prevotella Bivia Awaiting wound VAC for discharge. A/P Narrative: A: *Necrotizing soft tissue Right lower abdominal wall: s/p I&D (07/30) -[facility] Strep agalactiae & Prevotella bivia *Sepsis: 2/2 above, resolved *Influenza A: *Met acidosis: 2/2 above *DM: A1c 8.0 *HTN: low on admit *Morbid obesity: *Anemia, chronic: *Psoriasis: on Secukinumab (monoclonal ab to IL-17), follows with Dr. Panchal *GERD: Discharge diagnosis: Necrotizing soft tissue infection right abdominal wall sepsis influenza A Secondary discharge diagnosis: Diabetes hypertension morbid obesity anemia psoriasis GERD Time Spent with Patient Time attestation: Total time spent providing and/or coordinating discharge services: Time spent: Greater than 30 minutes EXAM Constitutional Vitals: Temp Pulse Resp BP Pulse Ox 98.2 F 76 20 137/69 98 08/03/21 06:58 08/03/21 04:00 08/03/21 06:58 08/03/21 06:58 08/03/21 06:58 Discharge Data Data Completed and Pending Labs on day of discharge: Preliminary micro results at discharge 07/30/21 20:20 Gram Stain - Preliminary Abdomen - Not Given Anaerobic Culture - Preliminary Prevotella bivia 07/30/21 16:28 Blood Culture - Preliminary Blood 07/30/21 16:23 Blood Culture - Preliminary Blood Discharge Plan Patient/Caregiver Discharge Instructions Activity: increase activity as tolerated Diet: Consistent Carbohydrate Activity Restrictions/Additional Instructions: Hold Secukinumab until seen by PCP. Prescriptions: New amoxicillin-pot clavulanate [Augmentin] 875-125 mg tablet 1 tab PO Q12H Qty: 10 0RF Continued clobetasol 0.05 % cream 1 applic TOPICAL BID Qty: 45 2RF Cosentyx Pen (2 Pens) 150 mg/mL pen injector See Rx Instructions .ROUTE .COMPLEX Qty: 12 0RF Rx Instructions: take 300mg at 0, 1, 2, 3, 4, weeks; then take 300mg every 4 weeks; cyanocobalamin (vitamin B-12) 1,000 mcg capsule 1,000 mcg PO QDAY 0RF omeprazole 20 mg capsule,delayed release(DR/EC) 20 mg PO BID 0RF multivitamin [Daily Multiple] tablet 1 tab PO QDAY 0RF lisinopril 10 mg tablet 40 mg PO QDAY 0RF clobetasol 0.05 % solution 1 applic TOPICAL .1-3xWK PRN (Reason: Itching) 0RF atenolol 50 mg tablet 100 mg PO QDAY 0RF acetaminophen 325 mg tablet 650 mg PO Q4-6HP PRN (Reason: Pain) 0RF ondansetron HCl [Zofran] 4 mg tablet 4 mg PO Q6H PRN (Reason: nausea and vomiting) Qty: 10 0RF hydrochlorothiazide 25 mg Tablet 25 mg PO QAM 0RF Trulicity 0.75 mg/0.5 mL pen injector 0.75 mg subcut WEEKLY 0RF cetirizine 10 mg Tablet 10 mg PO HS 0RF metformin 850 mg tablet 850 mg PO BID 0RF topiramate 25 mg tablet 25 mg PO DAILY 0RF Magnesium (oxide/AA chelate) 420 mg PO DAILY 0RF Follow Up Plan Follow up with: Tano Groves ARNP [Primary Care Provider] - Tico Funez MD [Physician] - Patient Disposition: Home, Self-Care Prognosis: Fair Overall status at discharge: patient is progressing back to baseline
[2021-08-03] MEDS: HYDROcodone/APAP 5/325MG TABLET PO PRN ×2 (14:32→19:18)
[2021-08-03] MEDS: MELATONIN 3 MG TABLET PO SCH (22:13)
[2021-08-04] MEDS: HYDROcodone/APAP 5/325MG TABLET PO PRN ×3 (01:20→19:32)
[2021-08-04] MEDS: INSULIN LISPRO 1 UNIT/0.01 ML UNIT SQ SCH ×5 (04:45→20:03)
[2021-08-04] MEDS: HEPARIN 5,000 UNIT/ML VIAL SQ SCH ×3 (06:30→20:03)
[2021-08-04] MEDS: 0.9 % SODIUM CHLORIDE 10 ML SYRINGE IV SCH ×3 (06:30→20:04)
[2021-08-04] MEDS: PIPERACILLIN SODIUM/TAZOBACTAM 4.5 GM in DEXTROSE 5% IN WATER 50 ML IV SCH (06:30)
[2021-08-04] MEDS: OMEPRAZOLE 20 MG CAPSULE PO SCH ×2 (08:02→17:05)
[2021-08-04] MEDS: OSELTAMIVIR PHOSPHATE 75 MG CAPSULE PO SCH ×2 (09:30→19:32)
[2021-08-04] MEDS: TOPIRAMATE 25 MG TABLET PO SCH (09:31)
[2021-08-04] MEDS: LISINOPRIL 10 MG TABLET PO SCH (09:31)
[2021-08-04] MEDS: ATENOLOL 50 MG TABLET PO SCH (09:31)
[2021-08-04] MEDS: INSULIN GLARGINE, HUMAN 1 UNIT/0.01 ML SQ SCH (09:34)
--- NOTE | 2021-08-04 10:09 | Internal Med Progress Note ---
SUBJECTIVE Subjective Patient information: Note initiated : 08/04/21 at 10:08 am Service Date, if different from initiated Date: [] Patient: Olivia Courtney a 45 y/o F admitted on 07/31/21 for cold/flu. Chief Complaint: [] Interval history: History of present illness: Ms. Courtney is a 45 year old F Patient presents the ED with generalized body aches headache nausea vomiting fever chills and right lower abdominal pain. Work-up revealed a cellulitic appearance of the right lower quadrant abdomen. Imaging revealed appear to be necrotizing fasciitis. She had a WBC of 20 and a fever of 102. Dr. Funez took her for debridement last night. There is no inpatient bed available for her yesterday so she was taken back to the ED after surgery. Today she is afebrile today and her leukocytosis improving. She is also on m 08/01 Poor sleep but otherwise feels better. Afebrile. Blood pressure low normal. Leukocytosis improving. Blood glucose elevated and will obtain A1c and start basal insulin while here Metformin held given recent contrast study. Start her other oral hypoglycemic. 08/02 No overnight event or new complaints. Leukocytosis resolved. Acidosis resolved. Wound VAC per surgery and discharge once cleared by surgery and once final wound culture back. 08/03 No overnight event or new complaints. Wound cultures growing strep agalactiae and anaerobic cultures growing Prevotella Bivia Awaiting wound VAC for discharge. 08/04 No overnight event or new complaints. Transition to Augmentin. Awaiting wound VAC authorization for discharge. Review of Systems: denies headache/fever/chills/nausea/vomiting/chest or abdominal pain/cough/dyspnea/diarrhea. Otherwise see above. Constitutional Vitals: Vital Signs Temp Pulse Resp BP Pulse Ox 98.0 F 76 22 118/70 97 08/04/21 08:00 08/04/21 08:00 08/04/21 08:00 08/04/21 08:00 08/04/21 08:00 Period Temp Pulse Resp BP Sys/Ocampo Pulse Ox Last 24 Hr 97 F-98.0 F 74-85 16-22 118-139/56-82 95-99 Intake and Output 08/03/21 08/04/21 08/04/21 21:59 05:59 13:59 Intake Total 500 1650 Balance 500 1650 Weight 174.746 kg Intake & Output: Intake & Output 08/03/21 08/04/21 08/04/21 21:59 05:59 13:59 Intake Total 500 1650 Balance 500 1650 Weight 174.746 kg Intake: IV 50 50 Zosyn 4.5 gm In Dextrose 5% in 50 50 Water 50 ml @ 100 mls/hr IV Q8H [facility] Rx#:[id number] Oral 450 1600 Other: Meal Lunch Percent of Meal Consumed 100% Urine Appearance Clear Urine Color Pale Urine Odor Normal # Voids 2 1 Exam: General: Alert, Awake, No acute Distress, morbid obesity Eyes/N/T: EOMI, Head/Neck: neck supple, CV: RRR, No murmurs, Pulm: Clear b/l, no wheezing/rhonchi/rales Abd: soft, +BS x4, abdominal dressing in place over surgical site Ext: no clubbing/cyanosis/edema Neuro: Alert, no focal deficits, moves all extremities, Skin: warm/dry OBJ DATA Labs CBC & Chem 7: 08/02/21 05:37 08/02/21 05:36 Labs: Abnormal Lab Results 08/02/21 08/02/21 05:37 05:36 Hgb 9.9 L Hct 30.4 L Glucose 159 H Calcium 7.8 L Lactate Dehydrogenase 101 L Albumin 2.8 L Globulin 3.9 H Albumin/Globulin Ratio 0.7 L Triglycerides 161 H Meds: Medications Acetaminophen (Acetaminophen 325 Mg Tablet) 650 mg PO Q6HP PRN; Protocol PRN Reason: Per Pain Protocol/Fever > 101 Last Admin: 08/02/21 04:35 Dose: 650 mg Documented by: Hydrocodone Bitart/Acetaminophen (Hydrocodone/Apap 5/325mg Tablet) 1 tab PO Q4HP PRN PRN Reason: PAIN LEVEL 3-6 Last Admin: 08/04/21 01:20 Dose: 1 tab Documented by: Albuterol/Ipratropium (Ipratropium/Albuterol 3 Ml Ampul.Neb) 3 ml NEB Q4HP PRN PRN Reason: Shortness Of Breath Atenolol (Atenolol 50 Mg Tablet) 100 mg PO DAILY [facility] Last Admin: 08/04/21 09:31 Dose: 100 mg Documented by: Dextrose (Dextrose 50% 50 Ml Vial) 0 ml IV UD PRN PRN Reason: Hypoglycemia Diagnostic Test (Pha) (Accu-Chek 1 Each Strip) 1 each FS Q4H [facility] Last Admin: 08/04/21 09:34 Dose: 1 each Documented by: Diphenhydramine HCl (Diphenhydramine 25 Mg Capsule) 25 mg PO HSP PRN PRN Reason: Insomnia Docusate Sodium (Docusate Sodium 100 Mg Capsule) 100 mg PO BID [facility] Last Admin: 08/03/21 22:13 Dose: Not Given Documented by: Glucose (Dextrose 31 Gm Oral.Susp) 15 gm PO PRN PRN PRN Reason: Hypoglycemia Heparin Sodium (Porcine) (Heparin 5,000 Unit/Ml Vial) 5,000 unit SQ Q8 [facility] Last Admin: 08/04/21 06:30 Dose: 5,000 unit Documented by: Piperacillin Sod/Tazobactam (Sod 4.5 gm/ Dextrose) 50 mls @ 100 mls/hr IV Q8H [facility]; Protocol Last Admin: 08/04/21 06:30 Dose: 100 mls/hr Documented by: Potassium Chloride 40 meq/ (Dextrose) 520 mls @ 130 mls/hr IV UD PRN PRN Reason: Potassium < 3 Magnesium Sulfate (Magnesium Sulfate) 2 gm in 50 mls @ 50 mls/hr IV UD PRN PRN Reason: Magnesium </= 1.6 Insulin Glargine (Insulin Glargine, Human 1 Unit/0.01 Ml) 20 unit SQ DAILY [facility] Last Admin: 08/04/21 09:34 Dose: 20 units Documented by: Insulin Human Lispro (Insulin Lispro 1 Unit/0.01 Ml Unit) 0 unit SQ Q4H [facility]; Protocol Last Admin: 08/04/21 09:33 Dose: 2 units Documented by: Labetalol HCl (Labetalol 5 Mg/Ml Ml) 0 mg IV Q2HP PRN PRN Reason: Hypertension Lisinopril (Lisinopril 10 Mg Tablet) 40 mg PO QDAY [facility] Last Admin: 08/04/21 09:31 Dose: 40 mg Documented by: Melatonin (Melatonin 3 Mg Tablet) 3 mg PO QHS [facility] Last Admin: 08/03/21 22:13 Dose: 3 mg Documented by: Morphine Sulfate (Morphine 4 Mg/Ml Vial) 0 mg IV Q3HP PRN PRN Reason: Pain Last Admin: 08/01/21 02:46 Dose: 2 mg Documented by: Mupirocin (Mupirocin Oint 2% 22gm) 1 dose NARES BID [facility] Last Admin: 08/03/21 22:14 Dose: 1 dose Documented by: Omeprazole (Omeprazole 20 Mg Capsule) 20 mg PO BIDAC [facility] Last Admin: 08/04/21 08:02 Dose: 20 mg Documented by: Ondansetron HCl (Ondansetron 4 Mg/2 Ml Vial) 4 mg IV Q4HP PRN PRN Reason: Nausea And Vomiting Oseltamivir Phosphate (Oseltamivir Phosphate 75 Mg Capsule) 75 mg PO BID [facility] Stop: 08/04/21 21:01 Last Admin: 08/04/21 09:30 Dose: 75 mg Documented by: Dulaglutide [ [facility] 0.75 Mg/0 .5 Ml Pen Injector 1 dose SC We@0900 [facility] Polyethylene Glycol (Polyethylene Glycol 3350 17 Gm Packet) 17 gm PO DAILYP PRN PRN Reason: Constipation Potassium Chloride (Potassium Chloride 20 Meq Tablet) 40 meq PO UD PRN PRN Reason: Potssium is 3-3.5 Last Admin: 08/03/21 22:56 Dose: 40 meq Documented by: Potassium Chloride (Potassium Chloride 20 Meq Tablet) 40 meq PO UD PRN PRN Reason: Potassium < 3 Prochlorperazine (Prochlorperazine 10 Mg/2 Ml Vial) 10 mg IV Q6HP PRN PRN Reason: Nausea And Vomiting Senna (Sennosides 1 Tablet) 2 tab PO DAILYP PRN PRN Reason: Constipation Sodium Chloride (0.9 % Sodium Chloride 10 Ml Syringe) 10 ml IV Q8 [facility] Last Admin: 08/04/21 06:30 Dose: 10 ml Documented by: Topiramate (Topiramate 25 Mg Tablet) 25 mg PO DAILY [facility] Last Admin: 08/04/21 09:31 Dose: 25 mg Documented by: A/P Narrative A/P Narrative: A: *Necrotizing soft tissue Right lower abdominal wall: s/p I&D (07/30) -[facility] Strep agalactiae & Prevotella bivia *Sepsis: 2/2 above, resolved *Influenza A: *Met acidosis: 2/2 above *DM: A1c 8.0 *HTN: low on admit *Morbid obesity: *Anemia, chronic: *Psoriasis: on Secukinumab (monoclonal ab to IL-17), follows with Dr. Panchal *GERD: *Hypophos: resolved P: -Zosyn to Augmentin. Ok to d/c from Hospitalist standpoint, await surgery/wound vac clearance -Surgery following, wound vac per surgery -wound care -restarted BB/ACEI, hold hctz for now -SSI, -hold home Secukinumab -Tamiflu -pt/ot -ppx: heparin / home ppi Time Spent With Patient Time: Total time spent is greater than 50% in coordination of care (as documented) at patient's floor/unit and/or counseling patient:
[2021-08-04] MEDS: morphine 4 MG/ML VIAL IV PRN (11:15)
[2021-08-04] MEDS: MUPIROCIN OINT 2% 22GM NARES SCH ×2 (11:37→19:33)
[2021-08-04] MEDS: DOCUSATE SODIUM 100 MG CAPSULE PO SCH ×2 (11:39→19:35)
[2021-08-04] MEDS: AMOXICILLIN/POTASSIUM CLAV 875 MG TABLET PO SCH (17:05)
--- NOTE | 2021-08-04 17:15 | General Surgery Progress Note ---
SUBJECTIVE Subjective Patient information: Note initiated : 08/04/21 at 5:11 pm Service Date, if different from initiated Date: [] Patient: Olivia Courtney 45 y/o F admitted on 07/31/21 for cold/flu. Chief Complaint: [] POD #5 Exploration and Debridement Necrotizing Soft Tissue Infection Doing well, minimal pain, VAC in place Constitutional Vitals: Vital Signs Temp Pulse Resp BP Pulse Ox 96.9 F L 69 22 134/81 97 08/04/21 15:35 08/04/21 15:35 08/04/21 15:35 08/04/21 15:35 08/04/21 15:35 Period Temp Pulse Resp BP Sys/Ocampo Pulse Ox Last 24 Hr 96.9 F-98.0 F 68-85 16-22 118-139/56-81 95-99 Intake and Output 08/04/21 08/04/21 08/04/21 05:59 13:59 21:59 Intake Total 1650 200 Balance 1650 200 Intake & Output: Intake & Output 08/04/21 08/04/21 08/04/21 05:59 13:59 21:59 Intake Total 1650 200 Balance 1650 200 Intake: IV 50 Zosyn 4.5 gm In Dextrose 5% in 50 Water 50 ml @ 100 mls/hr IV Q8H ON LICENSE OF [facility] Rx#:[id number] Oral 1600 200 Other: Meal Breakfast Percent of Meal Consumed 75% Feeding Ability Independent Stool Size Moderate Stool Color Brown Stool Consistency Normal for Patient # Voids 1 1 # Bowel Movements 1 General appearance: cooperative and no acute distress GI/Abdominal Additional comments: VAC in place at this time A/P Narrative A/P Narrative: POD #5 Exploration and Debridement Necrotizing Soft Tissue Infection Doing well Arrangements underway for Home Wound VAC Care Possible discharge in AM We will see her in follow up in Clinic Time Spent With Patient Time: Total time spent is greater than 50% in coordination of care (as documented) at patient's floor/unit and/or counseling patient:
[2021-08-04] MEDS: MELATONIN 3 MG TABLET PO SCH (19:32)
[2021-08-05] MEDS: 0.9 % SODIUM CHLORIDE 10 ML SYRINGE IV SCH (05:17)
[2021-08-05] MEDS: HEPARIN 5,000 UNIT/ML VIAL SQ SCH ×2 (05:17→14:36)
[2021-08-05] MEDS: OMEPRAZOLE 20 MG CAPSULE PO SCH (07:43)
[2021-08-05] MEDS: AMOXICILLIN/POTASSIUM CLAV 875 MG TABLET PO SCH (07:43)
[2021-08-05] MEDS: INSULIN LISPRO 1 UNIT/0.01 ML UNIT SQ SCH ×2 (07:43→12:19)
[2021-08-05] MEDS: ATENOLOL 50 MG TABLET PO SCH (09:08)
[2021-08-05] MEDS: LISINOPRIL 10 MG TABLET PO SCH (09:08)
[2021-08-05] MEDS: TOPIRAMATE 25 MG TABLET PO SCH (09:08)
[2021-08-05] MEDS: DOCUSATE SODIUM 100 MG CAPSULE PO SCH (09:09)
[2021-08-05] MEDS: MUPIROCIN OINT 2% 22GM NARES SCH (09:09)
[2021-08-05] MEDS: INSULIN GLARGINE, HUMAN 1 UNIT/0.01 ML SQ SCH (09:09)
--- NOTE | 2021-08-05 11:46 | Discharge Summary ---
Discharge Provider Provider Patient information: Note initiated : 08/05/21 at 11:43 am Service Date, if different from initiated Date: [] Patient: Olivia Courtney 45 y/o F admitted on 07/31/21 for cold/flu. Chief Complaint: [] Date of admission: 07/31/21 12:43 Discharge date: 08/05/21 Primary care physician: GIGI Hernandez Attending physician on admission: Tico Funez Consults: 07/30/21 Consult to Physician [CONS] Stat Comment: Consulting Provider: Demetrio Thomas Reason For Exam: Physician to Consult 07/31/21 12:45 Consult to Physician [CONS] Routine Comment: Consulting Provider: Tico Funez Reason For Exam: Physician to Consult Attending physician on discharge: Tico Funez Discharge Meds Discharge Medications Home Medications acetaminophen 325 mg tablet 650 mg PO Q4-6HP PRN tab 06/21/17 [History Confirmed 07/31/21 Last Taken 07/29/21] atenolol 50 mg tablet 100 mg PO QDAY tab 06/21/17 [History Confirmed 07/31/21 Last Taken 05/15/18] clobetasol 0.05 % scalp solution 1 applic TOPICAL .1-3xWK PRN ml 06/21/17 [History Confirmed 07/31/21 Last Taken 07/29/21] cyanocobalamin (vitamin B-12) 1,000 mcg capsule 1,000 mcg PO QDAY 06/21/17 [History Confirmed 07/31/21 Last Taken 07/29/21] lisinopril 10 mg tablet 40 mg PO QDAY 06/21/17 [History Confirmed 07/31/21 Last Taken 07/29/21] multivitamin (Daily Multiple) 1 tab PO QDAY 06/21/17 [History Confirmed 07/31/21 Last Taken 07/29/21] omeprazole 20 mg capsule,delayed release 20 mg PO BID 06/21/17 [History Confirmed 07/31/21 Last Taken 07/29/21] clobetasol 0.05 % topical cream 1 applic TOPICAL BID #45 g 02/28/19 [Rx Confirmed 07/31/21 Last Taken 07/29/21] ondansetron HCl 4 mg tablet (Zofran) 4 mg PO Q6H PRN #10 tab 11/30/20 [Rx Confirmed 07/31/21 Last Taken 07/29/21] secukinumab 150 mg/mL subcutaneous pen injector (Cosentyx Pen 300 mg/2 Pens () See Rx Instructions .ROUTE .COMPLEX #12 ml 07/30/21 [Rx Confirmed 07/31/21 Last Taken 07/29/21] Magnesium (oxide/AA chelate) 420 mg PO DAILY 07/31/21 [History Confirmed 07/31/21 Last Taken Unknown] cetirizine 10 mg tablet 10 mg PO HS 07/31/21 [History Confirmed 07/31/21 Last Taken Unknown] dulaglutide 0.75 mg/0.5 mL subcutaneous pen injector (Trulicity) 0.75 mg SUBCUT WEEKLY 07/31/21 [History Confirmed 08/01/21 Last Taken Unknown] hydrochlorothiazide 25 mg tablet 25 mg PO QAM 07/31/21 [History Confirmed 07/31/21 Last Taken Unknown] metformin 850 mg tablet 850 mg PO BID 07/31/21 [History Confirmed 07/31/21 Last Taken 07/29/21] topiramate 25 mg tablet 25 mg PO DAILY 07/31/21 [History Confirmed 07/31/21 Last Taken 07/29/21] amoxicillin 875 mg-potassium clavulanate 125 mg tablet 875 mg PO BIDCC #10 tab 08/05/21 [Rx Last Taken Unknown] COURSE Hospital Course Hospital course: Ms. Courtney is a 45 year old F Patient presents the ED with generalized body aches headache nausea vomiting fever chills and right lower abdominal pain. Work-up revealed a cellulitic appearance of the right lower quadrant abdomen. Imaging revealed appear to be necrotizing fasciitis. She had a WBC of 20 and a fever of 102. Dr. Funez took her for debridement last night. There is no inpatient bed available for her yesterday so she was taken back to the ED after surgery. Today she is afebrile today and her leukocytosis improving. She is also on m 08/01 Poor sleep but otherwise feels better. Afebrile. Blood pressure low normal. Leukocytosis improving. Blood glucose elevated and will obtain A1c and start basal insulin while here Metformin held given recent contrast study. Start her other oral hypoglycemic. 08/02 No overnight event or new complaints. Leukocytosis resolved. Acidosis resolved. Wound VAC per surgery and discharge once cleared by surgery and once final wound culture back. 08/03 No overnight event or new complaints. Wound cultures growing strep agalactiae and anaerobic cultures growing Prevotella Bivia Awaiting wound VAC for discharge. 08/04 No overnight event or new complaints. Transition to Augmentin. Awaiting wound VAC authorization for discharge. 08/05: Reached clinical stability, being discharged home with wound vac, Rx Augmentin, and follow up appointment with Dr. Funez. Discharge diagnosis: necrotizing soft tissue infection, influenza A Time Spent with Patient Time attestation: Total time spent providing and/or coordinating discharge services: EXAM Constitutional Vitals: Temp Pulse Resp BP Pulse Ox 36.3 C 70 20 131/71 95 08/05/21 07:37 08/05/21 07:37 08/05/21 07:37 08/05/21 07:37 08/05/21 07:37 General appearance: cooperative and no acute distress Head Head exam: Present atraumatic and normocephalic Eye Eye exam: Present EOMI and PERRL ENT ENT exam: Present mucous membranes moist, normal exam and normal external ear exam Neck Neck exam: Present normal inspection; Absent lymphadenopathy, tenderness or thyromegaly Respiratory Respiratory exam: Absent accessory muscle use, respiratory distress or wheezes Cardiovascular Cardiovascular exam: Present normal rate and rhythm; Absent JVD GI/Abdominal GI/Abdominal exam: Present normal bowel sounds, soft and tenderness; Absent organomegaly Additional comments: Wound vac in right lower quadrant abdomen Extremities Exam Extremities exam: Present full ROM, normal capillary refill and normal inspection; Absent tenderness Neurological Exam Neurological exam: Present alert, CN II-XII intact and oriented X3; Absent motor sensory deficit Psychiatric Psychiatric exam: Present normal affect and normal mood; Absent anxious or depressed Skin Skin exam: Present dry and intact Discharge Data Data Completed and Pending Labs on day of discharge: Preliminary micro results at discharge 07/30/21 20:20 Gram Stain - Preliminary Abdomen - Not Given Anaerobic Culture - Preliminary Prevotella bivia Peptococcus anaerobius Anaerobic gram positive cocci Discharge Plan Patient/Caregiver Discharge Instructions Activity: increase activity as tolerated Diet: Consistent Carbohydrate Activity Restrictions/Additional Instructions: Hold Secukinumab until seen by PCP. Stand Alone Forms: Work/Release Restrictions Prescriptions: New amoxicillin-pot clavulanate 875-125 mg Tablet 875 mg PO BIDCC Qty: 10 0RF Continued clobetasol 0.05 % cream 1 applic TOPICAL BID Qty: 45 2RF Cosentyx Pen (2 Pens) 150 mg/mL pen injector See Rx Instructions .ROUTE .COMPLEX Qty: 12 0RF Rx Instructions: take 300mg at 0, 1, 2, 3, 4, weeks; then take 300mg every 4 weeks; cyanocobalamin (vitamin B-12) 1,000 mcg capsule 1,000 mcg PO QDAY 0RF omeprazole 20 mg capsule,delayed release(DR/EC) 20 mg PO BID 0RF multivitamin [Daily Multiple] tablet 1 tab PO QDAY 0RF lisinopril 10 mg tablet 40 mg PO QDAY 0RF clobetasol 0.05 % solution 1 applic TOPICAL .1-3xWK PRN (Reason: Itching) 0RF atenolol 50 mg tablet 100 mg PO QDAY 0RF acetaminophen 325 mg tablet 650 mg PO Q4-6HP PRN (Reason: Pain) 0RF ondansetron HCl [Zofran] 4 mg tablet 4 mg PO Q6H PRN (Reason: nausea and vomiting) Qty: 10 0RF hydrochlorothiazide 25 mg Tablet 25 mg PO QAM 0RF Trulicity 0.75 mg/0.5 mL pen injector 0.75 mg subcut WEEKLY 0RF cetirizine 10 mg Tablet 10 mg PO HS 0RF metformin 850 mg tablet 850 mg PO BID 0RF topiramate 25 mg tablet 25 mg PO DAILY 0RF Magnesium (oxide/AA chelate) 420 mg PO DAILY 0RF Follow Up Plan Follow up with: Tico Funez MD [Physician] - Tano Groves ARNP [Primary Care Provider] - Patient Disposition: Home Health Service Prognosis: Fair Rehab Potential: Good I certify that the patient requires SNF services: No Overall status at discharge: patient is progressing back to baseline Discharge Orders: Discharge Order (Routine); Ordered 08/05/21 Ordered By: Radhames Brown
--- NOTE | 2021-08-07 17:38 | Surgical Pathology Report ---
Histology Microscopic Diagnosis Specimen A- SKIN, SOFT TISSUE, ABDOMINAL WALL, EXCISION: --- SUBCUTANEOUS ABSCESS WITH DENSE ACUTE/CHRONIC INFLAMMATION, FAT NECROSIS AND ACUTE PANNICULITIS. --- NO NEOPLASIA OR MALIGNANCY IDENTIFIED. ([facility]) Gross Description Received in formalin designated as abdominal wall necrotizing soft tissue, is an unoriented ellipse of p[place]man medina skin. It is 10.1 x 7.2 by up to 4.2 cm. Centrally there is a 3.2 x 2.5 cm slightly raised area oozing pink fluids. In the soft tissue beneath there is a 4 x 1.2 cm dusky medina and disrupted area. Sectioning through the raised area reveals a 2 x 1.5 x 3.5 cm cavity. Grossly it does appear that this entire cavity was excised. The margin is inked black. Top Stitcher sections are submitted in two cassettes with the tips in A1 and a abrasives sales representative section of the cavity in A2. ([facility]) Electronically Signed Noah Fermin MD, FCAP Electronically Signed 08/04/2021 18:06
== END 2021-08-05 17:30 | disposition home health service (06) | DRG 463 ==
LOC: ED 14:21 → EDSTATUS 18:30 → ED 18:40 → ICU 18:40 → SUR 18:41 → ED 20:34 → ICU 07-31 12:43 → ED 07-31 12:43 → MEDSUR 08-01 17:30
PROVIDERS: ADMIT Internal Medicine; ATTEND Internal Medicine